=== PATIENT | male | born 1985 | race Caucasian/White ===

== ENCOUNTER 2016-06-04 11:41 | Emergency (ER) | payer OTHER | END 2016-06-04 11:44 | disposition left against medical advice (07) | DX: Z53.21 Procedure and treatment not carried out due to patient leaving prior to being seen by health care provider (principal) ==

== ENCOUNTER 2016-06-08 15:34 | Emergency (ER) | payer OTHER ==
[2016-06-08 16:35] VITALS: RESP 18; TEMP 97.5
[2016-06-08] MEDS ORDERED: NS 1,000 ML IV ONE ×2 (16:38→17:18)
--- NOTE | 2016-06-08 16:59 | DX ---
CHEST, PA and lateral HISTORY: Cough, R05, dyspnea COMPARISON: February 29, 2016 FINDINGS: No infiltrate, atelectasis, mass or adenopathy. No pleural fluid, pneumothorax or pneumomed iastinum. IMPRESSION: Normal
[2016-06-08 17:04] LABS: % IMMATURE GRANULYOCYTES 0.2 % (0.0-1.1); ABSOLUTE IMMATURE GRANULOCYTES 0.02 10^3/uL (0.00-0.10); ADD DIFF? NO; ADD MORPH? NO; ADD SCAN? NO; ATYPICAL LYMPHOCYTE FLAG 0 (0-99); FRAGMENT RBC FLAG 0 (0-99); HEMATOCRIT 53.1 % (40.0-51.0); HEMOGLOBIN 19.6 g/dL (13.7-17.5); LEFT SHIFT FLG 0 (0-99); LIPEMIA HEMOLYSIS FLAG 90 (0-99); MEAN CELL HEMOGLOBIN 31.1 pg (27.9-34.1); MEAN CELL HEMOGLOBIN CONCENTR. 36.9 g/dL (32.4-36.7); MEAN CELL VOLUME 84.3 fL (81.5-99.8); MEAN PLATELET VOLUME 10.8 fL (8.7-11.7); PLATELET CLUMPS FLAG 0 (0-99); PLATELET COUNT 246 10^3/uL (150-400); RED CELL DISTRIBUTION WIDTH 12.5 % (11.5-15.2)
--- NOTE | 2016-06-08 17:18 | EDPHY ---
H & P Time Seen by Provider: 06/08/16 16:37 HPI/ROS: HPI Not feeling well. 31-year-old male by private vehicle with his father. This patient reports that he has had a decreased appetite, felt weak, had nasal congestion and a mild nonproductive cough the last week. Reports that he feels lightheaded when he stands up. He denies fever/chills. This patient has had multiple visits over the last several weeks to the emergency department for various complaints. On review of his vital signs from previous visits he has been tachycardic. ROS: Constitutional: No fever, no chills. As above. Eyes: No discharge. No changes in vision. ENT: No sore throat. As above. Respiratory: As above. No shortness of breath. Cardiac: No chest pain, no palpitations. Gastrointestinal: No abdominal pain, no vomiting, no diarrhea. Genitourinary: No hematuria. No dysuria or increased frequency with urination. Musculoskeletal: No back pain. No neck pain. No myalgias or arthralgias. Skin: No rashes. Neurological: No headache. No focal weakness or altered sensation. Past medical history: Attention deficit hyperactivity disorder, PTSD, anxiety, substance abuse. His medications include clozapine, Lamictal, Antabuse. Social history: He is here with his father. Nonsmoker. Physical Exam: General Appearance: Alert, no distress. This patient is responding to questions appropriately and in full sentences. This patient appears well- hydrated and well-nourished. Eyes: Pupils equal and round no pallor or injection. No lid edema, erythema or injection. ENT, Mouth: Mucous membranes are moist. The pharyngeal tissues are unremarkable. No edema or swelling. No asymmetry suggestive of abscess. No erythema or exudates. Respiratory: There are no retractions, lungs are clear to auscultation with good air movement bilaterally. Cardiovascular: Regular rate and rhythm. No murmur. Gastrointestinal: Abdomen is soft and nontender, no masses, bowel sounds normal. No focal tenderness at McBurney's point. No Garg sign. Neurological: Motor sensory function is grossly intact. Cranial nerves are normal. Gait is normal. Skin: Warm and dry, no rashes. Musculoskeletal: Neck is supple and nontender. Extremities are symmetrical. All joints range without pain or impingement. Psychiatric: No agitation. No depression. Database: EKG: Imaging: Chest x-ray PA and lateral; the cardiac mediastinal silhouette is unremarkable. No evidence of infiltrate or pneumothorax. No acute cardiopulmonary disease process noted. Interpreted by me. Procedures: Emergency department course: IV placed. He was started on IV normal saline with 1 L to be given over the next hour. Vital signs reviewed. He was mildly tachycardic in triage at 1:17 a.m.. Blood pressure normal. Afebrile. Laboratory work indicates dehydration but is otherwise unremarkable. Patient given 2 L of IV normal saline in the emergency department. Influenza is negative. 5:50 p.m., patient re-evaluated. Resting comfortably at this time. Although he meets SIRS criteria based on his initial vital signs, he does not have evidence of serious bacterial infection. He has been afebrile. He has been tachycardic on his previous visits to the emergency department. I do feel he is dehydrated. I do not feel that antibiotics or further workup is required at this time. Results of his diagnostic studies were discussed with him and his father. He states that he is feeling better. He does feel comfortable going home and I feel he is safe for discharge. His presentation is consistent with a viral syndrome. Follow-up and return to emergency department precautions were discussed with the 2 of them. All of their questions were answered. He was discharged in good condition. Differential Diagnosis: The differential diagnosis on this patient includes but is not limited to influenza, pneumonia, viral syndrome, dehydration. Serious bacterial infection unlikely. This represents a partial list of diagnoses considered. These considerations are based on history, physical exam, past history, reassessment and diagnostic testing. Smoking Status: Current some day smoker Constitutional: Initial Vital Signs Temperature (C) 36.3 C 06/08/16 15:44 Heart Rate 117 H 06/08/16 15:44 Respiratory Rate 22 H 06/08/16 15:44 Blood Pressure 102/84 H 06/08/16 15:44 O2 Sat (%) 99 06/08/16 15:44 O2 Delivery Mode Room Air Allergies/Adverse Reactions: Penicillins Allergy (Intermediate, Verified 06/08/16 15:42) Hives Home Medications: Medication Instructions Recorded Adderall 10 MG (*) 03/12/16 Fazaclo 03/12/16 ANTABUSE 06/08/16 Clindamycin 06/08/16 Deplin-Algal Oil 15 mg Capsule 06/08/16 LaMICtal 06/08/16 Medical Decision Making - Data Points Laboratory Results: Laboratory Results 06/08/16 16:50 06/08/16 16:50 Medications Given: Discontinued Medications Sodium Chloride (Ns) 1,000 mls @ 0 mls/hr IV ONCE ONE PRN Reason: Wide Open Stop: 06/08/16 16:39 Last Admin: 06/08/16 16:56 Dose: 1,000 mls Sodium Chloride (Ns) 1,000 mls @ 0 mls/hr IV ONCE ONE PRN Reason: Wide Open Stop: 06/08/16 17:19 Last Admin: 06/08/16 17:34 Dose: 1,000 mls Departure - Departure Disposition: Home, Routine, Self-Care Clinical Impression: Viral syndrome, Dehydration Condition: Good Instructions: Viral Syndrome (ED), Dehydration (ED) Additional Instructions: Read and follow provided instructions. Follow-up with your primary care physician in 1-2 days for re-evaluation. It is very important you drink lots of fluids and keep well hydrated. The best fluid to drink is Gatorade mixed with water in a 1-1 dilution. Return to the emergency department for high fever, vomiting and inability to keep fluids down, worsening cough or other serious concerns. Referrals: Franklyn Neal MD [Primary Care Provider] - As per Instructions
[2016-06-08 17:29] LABS: ANION GAP 19 mEq/L (8-16); CARBON DIOXIDE 22 mEq/l (22-31); CHLORIDE 100 mEq/L (97-110); GLUCOSE 113 mg/dL (70-100); POTASSIUM 3.5 mEq/L (3.5-5.2); SODIUM 141 mEq/L (134-144)
[2016-06-08 17:30] LABS: CALCIUM 10.6 mg/dL (8.5-10.4); GLOMERULAR FILTRATION RATE > 60
[2016-06-08 18:13] VITALS: BP 112/82; PULSE 102; O2SAT 99
== END 2016-06-08 18:13 | disposition home or self-care (01) ==
DX: B34.9 Viral infection, unspecified (principal); E86.0 Dehydration; F17.200 Nicotine dependence, unspecified, uncomplicated

== ENCOUNTER 2016-09-11 12:24 | Emergency (ER) | payer OTHER ==
[2016-09-11] MEDS ORDERED: LORazepam 2 MG/ML INJ IM ONE (12:37)
[2016-09-11] MEDS ORDERED: LORazepam 2 MG/ML INJ IVP ONE ×4 (13:25→19:38)
[2016-09-11 13:30] LABS: % IMMATURE GRANULYOCYTES 0.4 % (0.0-1.1); ABSOLUTE IMMATURE GRANULOCYTES 0.04 10^3/uL (0.00-0.10); ADD DIFF? NO; ADD MORPH? NO; ADD SCAN? NO; ATYPICAL LYMPHOCYTE FLAG 0 (0-99); FRAGMENT RBC FLAG 0 (0-99); HEMOGLOBIN 15.8 g/dL (13.7-17.5); LEFT SHIFT FLG 0 (0-99); LIPEMIA HEMOLYSIS FLAG 80 (0-99); MEAN CELL HEMOGLOBIN 30.2 pg (27.9-34.1); MEAN CELL HEMOGLOBIN CONCENTR. 33.6 g/dL (32.4-36.7); MEAN CELL VOLUME 89.9 fL (81.5-99.8); MEAN PLATELET VOLUME 9.5 fL (8.7-11.7); PLATELET CLUMPS FLAG 10 (0-99); PLATELET COUNT 339 10^3/uL (150-400); RED BLOOD CELL COUNT 5.23 10^6/uL (4.40-6.38)
[2016-09-11 13:41] LABS: ANION GAP 15 mEq/L (8-16); CALCIUM 9.7 mg/dL (8.5-10.4); CARBON DIOXIDE 24 mEq/l (22-31); CHLORIDE 102 mEq/L (97-110); CREATININE 0.8 mg/dL (0.7-1.3); ETHANOL SERUM < 10 mg/dL (0-10); GLOMERULAR FILTRATION RATE > 60; GLUCOSE 135 mg/dL (70-100); POTASSIUM 4.1 mEq/L (3.5-5.2); SODIUM 141 mEq/L (134-144)
--- NOTE | 2016-09-11 14:36 | EDPHY ---
Mental Health General Previous Psychiatric History: previous inpatient psychiatric admission, schizophrenia, bipolar, substance abuse Smoking Status: Current some day smoker Time Patient Placed on M1 Hold: 12:05 Time Medically Cleared for Psychiatric Evaluation: 14:36 Time of Transfer of Care: 18:[address]:: Talisha Narrative: CHIEF COMPLAINT: M1 hold HISTORY OF PRESENT ILLNESS: 31-year-old male with history of schizoaffective disorder and bipolar disorder presents emergency department on an M1 hold. Patient is staying at the [facility] with [facility] and has been there for the past week with increasing agitation and psychosis. Today the patient was acutely psychotic yelling and screaming, speaking nonsensically. Patient is agitated on arrival to the emergency department. Dr. Russo with [facility] is his psychiatrist and called telling us that the patient has extrapyramidal symptoms from most antipsychotics and is recommending benzos for his agitation. REVIEW OF SYSTEMS: Unable to obtain due to mental status Physical Exam Gen: Alert and Oriented, agitated HEENT: PERRL, moist mucous membranes NECK: no meningismus CV: regular rate and regular rhythm PULM: CTAB, no wheezes ABDOMEN: soft, non tender to palpation, BS present BACK: No CVA tenderness NEURO: Follows commands, no facial asymmetry, moves all extremities EXTREMITIES: normal appearing SKIN: no rash or break in skin on exposed skin PSYCH: Yelling, speaking nonsensically, not answering questions appropriate. (Tyesha Alejandra) 1500: The patient is signed out to me at change of shift by Dr. Parrish. I went and personally evaluated the patient. He has no new complaints at this time. He is resting comfortably. Patient was given his evening medications. No new complaints. (Rupali Fong) I assumed care of this patient from Dr. Florence Woodall at 11:00 p.m.. He received 2 mg of Ativan for agitation. He continued with moaning and yelling. The psychiatric team tells us that he can safely take Saphris and he was given 10 mg of this medication. He slept throughout the early hours of the morning. We are awaiting placement. His care is transferred to Dr. Deion Parrish at 7: 00 a.m.. (Sandhya Stephen) Care assumed at 0635 from [facility] with placement pending. 725: Patient still pacing and restless; will continue with Asenaphine 10mg po bid. 1230: The patient will be transferred to [facility] for inpatient psychiatric hospital bed not available at this facility, in stable condition; accepting provider is Kimmy. (Ilan Bates) Medical Decision Making: The patient was evaluated and managed by the Physician Aws Solution Architect/ Nurse Practitioner. I discussed the patient's presentation and course with the midlevel provider with them and agree with the evaluation. My co-signature indicates that I have reviewed this chart and I agree with the findings and plan of care as documented. I am the secondary supervising physician. (Yue Perez) 2300 Care assumed by me from Dr Fong pending placement. [address] Bates pending placement. No issues with this patient overnight. (Gian Palafox) - Objective Vital Signs: Initial Vital Signs Temperature (C) 36.5 C 09/11/16 13:27 Heart Rate 118 H 09/11/16 13:27 Respiratory Rate 18 09/11/16 13:27 Blood Pressure 132/79 H 09/11/16 13:27 O2 Sat (%) 98 09/11/16 13:27 O2 Delivery Mode Room Air Allergies/Adverse Reactions: Penicillins Allergy (Intermediate, Verified 06/08/16 15:42) Hives Home Medications: Medication Instructions Recorded Adderall 10 MG (*) 03/12/16 Fazaclo 03/12/16 ANTABUSE 06/08/16 Clindamycin 06/08/16 Deplin-Algal Oil 15 mg Capsule 06/08/16 LaMICtal 06/08/16 Medications Given: Discontinued Medications Acetaminophen (Tylenol) 500 mg PO EDNOW ONE Stop: 09/11/16 15:03 Last Admin: 09/11/16 15:02 Dose: 500 mg Asenapine (Saphris) 10 mg SL EDNOW ONE Stop: 09/12/16 02:22 Last Admin: 09/12/16 02:42 Dose: 10 mg Asenapine (Saphris) 10 mg SL EDNOW ONE Stop: 09/12/16 14:33 Last Admin: 09/12/16 14:51 Dose: 10 mg Asenapine (Saphris) 10 mg SL EDNOW ONE Stop: 09/12/16 21:06 Last Admin: 09/12/16 21:26 Dose: 10 mg Asenapine (Saphris) 10 mg SL EDNOW ONE Stop: 09/13/16 07:25 Last Admin: 09/13/16 08:00 Dose: 10 mg Lorazepam (Ativan Injection) 2 mg IM EDNOW ONE Stop: 09/11/16 12:38 Last Admin: 09/11/16 13:25 Dose: Not Given Lorazepam (Ativan Injection) 1 mg IVP EDNOW ONE Stop: 09/11/16 13:26 Last Admin: 09/11/16 13:29 Dose: 1 mg Lorazepam (Ativan Injection) 1 mg IVP EDNOW ONE Stop: 09/11/16 13:40 Last Admin: 09/11/16 13:43 Dose: 1 mg Lorazepam (Ativan Injection) 1 mg IVP EDNOW ONE Stop: 09/11/16 15:48 Last Admin: 09/11/16 16:21 Dose: 1 mg Lorazepam (Ativan Injection) 1 mg IVP EDNOW ONE Stop: 09/11/16 19:39 Last Admin: 09/11/16 19:51 Dose: 1 mg Lorazepam (Ativan) 2 mg PO EDNOW ONE Stop: 09/12/16 00:46 Last Admin: 09/12/16 01:04 Dose: 2 mg Lorazepam (Ativan) 1 mg PO EDNOW ONE Stop: 09/12/16 14:34 Last Admin: 09/12/16 14:52 Dose: 1 mg Lorazepam (Ativan) 1 mg PO EDNOW ONE Stop: 09/12/16 21:06 Last Admin: 09/12/16 21:26 Dose: 1 mg Lorazepam (Ativan) 2 mg PO EDNOW ONE Stop: 09/12/16 23:56 Last Admin: 09/13/16 00:05 Dose: 2 mg Lorazepam (Ativan) 2 mg PO EDNOW ONE Stop: 09/13/16 03:51 Last Admin: 09/13/16 03:50 Dose: 2 mg Throat Lozenges (Cepacol Lozenge) 1 ea PO EDNOW ONE Stop: 09/12/16 14:31 Last Admin: 09/12/16 14:52 Dose: 1 ea Throat Lozenges (Cepacol Lozenge) 1 ea PO EDNOW ONE Stop: 09/12/16 18:43 Last Admin: 09/12/16 21:26 Dose: 1 ea Throat Lozenges (Cepacol Lozenge) 1 ea PO EDNOW ONE Stop: 09/13/16 08:21 Last Admin: 09/13/16 08:20 Dose: 1 ea Laboratory Results: Laboratory Results 09/11/16 13:20 09/11/16 13:20 Departure - Departure Disposition: Other Psych, Not Robert Clinical Impression: Acute psychosis Condition: Good Referrals: [facility] [Other] - As per Instructions
[2016-09-11 14:42] LABS: LITHIUM 0.3 mEq/L (0.6-1.2)
[2016-09-11] MEDS ORDERED: ACETAMINOPHEN 500 MG TAB ONE (14:58)
[2016-09-11] MEDS ORDERED: ACETAMINOPHEN 500 MG TAB PO ONE (15:02)
[2016-09-11] MEDS ORDERED: IBUPROFEN 200 MG TAB PO ONE (15:55)
[2016-09-11] MEDS: NICOTINE 7 MG/24 HR PATCH TD SCH (22:35)
[2016-09-12] MEDS ORDERED: LORazepam 1 MG TAB ONE (00:40)
[2016-09-12] MEDS ORDERED: LORazepam 1 MG TAB PO ONE ×4 (00:45→23:55)
[2016-09-12] MEDS ORDERED: ASENAPINE MALEATE 10 MG SUBLINGUAL TAB SL ONE ×3 (02:21→21:05)
[2016-09-12] MEDS ORDERED: CEPACOL LOZENGE PO ONE ×2 (14:30→18:42)
[2016-09-12] MEDS: NICOTINE 7 MG/24 HR PATCH TD SCH (17:31)
[2016-09-13] MEDS ORDERED: NICOTINE POLACRILEX 2 MG GUM B ONE (00:01)
[2016-09-13] MEDS ORDERED: LORazepam 1 MG TAB ONE (03:49)
[2016-09-13] MEDS ORDERED: LORazepam 1 MG TAB PO ONE (03:50)
[2016-09-13] MEDS ORDERED: ASENAPINE MALEATE 10 MG SUBLINGUAL TAB SL ONE (07:24)
[2016-09-13] MEDS ORDERED: CEPACOL LOZENGE PO ONE (08:20)
[2016-09-13] MEDS: NICOTINE 7 MG/24 HR PATCH TD SCH ×2 (09:31→14:21)
[2016-09-13] MEDS ORDERED: LORazepam 0.5 MG TAB PO ONE (15:16)
[2016-09-13 15:19] VITALS: BP 101/76; PULSE 75; RESP 18; TEMP 98.6; O2SAT 99
== END 2016-09-13 17:35 ==
LOC: EDUNIT#
DX: F23 Brief psychotic disorder (principal); F17.200 Nicotine dependence, unspecified, uncomplicated
CPT/HCPCS: 80305; 96374; G0480; J2060

== ENCOUNTER 2016-10-25 05:59 | Inpatient (IN) | payer OTHER ==
[2016-10-25] MEDS ORDERED: LORazepam 1 MG TAB ONE ×2 (07:29)
[2016-10-25] MEDS ORDERED: OMEGA-3 FATTY ACIDS 1,000 MG CAP PO ONE (10:45)
[2016-10-25] MEDS ORDERED: MULTIVITAMINS 1 EACH TAB PO ONE (10:45)
[2016-10-25] MEDS ORDERED: clonazePAM 1 MG TAB PO ONE (10:45)
[2016-10-25] MEDS ORDERED: PSEUDOEPHEDRINE HCL 120 MG EXT REL TAB PO ONE (10:45)
[2016-10-25] MEDS ORDERED: CHOLECALCIFEROL VIT D3 1,000 UNITS TAB PO ONE (10:45)
[2016-10-25] MEDS ORDERED: OXcarbazepine 300 MG TAB PO ONE (10:45)
[2016-10-25] MEDS ORDERED: CETIRIZINE 10 MG TAB PO ONE (10:45)
[2016-10-25 11:39] LABS: PHENCYCLIDINE URINE BCH < 6 ng/ml (NEGATIVE); PHENCYCLIDINE URINE BCH NEGATIVE (NEGATIVE); TETRAHYDROCANNABINOL URINE < 5 ng/mL (NEGATIVE); TETRAHYDROCANNABINOL URINE NEGATIVE (NEGATIVE)
[2016-10-25 12:14] LABS: ALANINE AMINOTRANSFERASE 31 IU/L (21-72); ALBUMIN 4.7 g/dL (3.5-5.0); ALKALINE PHOSPHATASE 67 IU/L (38-126); ANION GAP 11 mEq/L (8-16); ASPARTATE AMINOTRANSFERASE 21 IU/L (17-59); BILIRUBIN,TOTAL 1.1 mg/dL (0.1-1.4); CALCIUM 9.2 mg/dL (8.5-10.4); CARBON DIOXIDE 24 mEq/l (22-31); CHLORIDE 104 mEq/L (97-110); CREATININE 0.8 mg/dL (0.7-1.3); ETHANOL SERUM < 10 mg/dL (0-10); GLOMERULAR FILTRATION RATE > 60; GLUCOSE 83 mg/dL (70-100); POTASSIUM 4.4 mEq/L (3.5-5.2); SODIUM 139 mEq/L (134-144); TOTAL PROTEIN 7.4 g/dL (6.3-8.2)
[2016-10-25 12:53] LABS: % IMMATURE GRANULYOCYTES 0.3 % (0.0-1.1); ABSOLUTE IMMATURE GRANULOCYTES 0.02 10^3/uL (0.00-0.10); ADD DIFF? NO; ADD MORPH? NO; ADD SCAN? NO; ATYPICAL LYMPHOCYTE FLAG 20 (0-99); FRAGMENT RBC FLAG 20 (0-99); HEMATOCRIT 43.6 % (40.0-51.0); HEMOGLOBIN 14.5 g/dL (13.7-17.5); LEFT SHIFT FLG 0 (0-99); LIPEMIA HEMOLYSIS FLAG 80 (0-99); MEAN CELL HEMOGLOBIN 29.7 pg (27.9-34.1); MEAN CELL HEMOGLOBIN CONCENTR. 33.3 g/dL (32.4-36.7); MEAN CELL VOLUME 89.3 fL (81.5-99.8); PLATELET CLUMPS FLAG 10 (0-99); PLATELET COUNT 288 10^3/uL (150-400); RED BLOOD CELL COUNT 4.88 10^6/uL (4.40-6.38); RED CELL DISTRIBUTION WIDTH 12.4 % (11.5-15.2)
--- NOTE | 2016-10-25 15:13 | EDPHY ---
ED Progress Note Narrative: Patient has been evaluated by mental health and they would like to admit him to [address] [place] [address]. Appropriate paperwork is filled out. Accepting physician is Dr. rPyor. Patient remains stable (Jaiden Romeo) Care the patient was assumed from Dr. Baird at 7:00 a.m. history of schizoaffective disorder on a mental health hold. Please see his primary H &P, and emergency department note for history and physical and initial assessment. 129/83, heart rate 69, respiratory rate 22, temp 36.7degrees, pulse oximetry 98% . CBC and chemistry normal, liver function normal, toxicology screen negative, ethanol less than 10. Signed out to Dr. Romeo at 1500 with psychiatric evaluation pending. Clinical impression: Schizoaffective disorder Disposition: inpatient [address] [place] [address] behavioral health Condition: fair, stable. (Ilan Bates)
[2016-10-25] MEDS ORDERED: MAGNESIUM HYDROXIDE 30 ML UDCUP PO PRN (18:51)
[2016-10-25] MEDS ORDERED: OLANZapine DISINTEGR 10 MG TAB PO PRN (18:51)
[2016-10-25] MEDS: clonazePAM 1 MG TAB PO SCH (20:46)
[2016-10-25] MEDS: OXcarbazepine 300 MG TAB PO SCH (20:46)
--- NOTE | 2016-10-25 23:33 | EDPHY ---
H & P Stated Complaint: M1 Time Seen by Provider: 10/25/16 10:29 HPI/ROS: CHIEF COMPLAINT: Self-harm gestures HISTORY OF PRESENT ILLNESS: The patient is a 31-year-old man sent from [facility] for making threatening gestures with a knife to himself and others. He is on a court-ordered mental health hold to take his medications but has been refusing. He denies all of this to me and states that some fucking bitch over reacted. He also states that they tried to give him Klonopin but the pharmacy fucked it up because it did not feel like Klonopin. He is very angry and somewhat confrontational. He denies suicidal homicidal ideations. He denies recent drug or alcohol use. According to the medical record he has a history of schizoaffective bipolar type. REVIEW OF SYSTEMS: Constitutional: denies: chills, fever, recent illness, recent injury EENTM: denies: blurred vision, double vision, nose congestion Respiratory: denies: cough, shortness of breath Cardiac: denies: chest pain, irregular heart rate, lightheadedness, palpitations Gastrointestinal/Abdominal: denies: abdominal pain, diarrhea, nausea, vomiting, blood streaked stools Genitourinary: denies: dysuria, frequency, hematuria, pain Musculoskeletal: denies: joint pain, muscle pain Skin: denies: lesions, rash, jaundice, bruising Neurological: denies: headache, numbness, paresthesia, tingling, dizziness, weakness Hematologic/Lymphatic: denies: blood clots, easy bleeding, easy bruising Immunologic/allergic: denies: HIV/AIDS, transplant EXAM: GENERAL: Well-appearing, well-nourished and in no acute distress. HEAD: Atraumatic, normocephalic. EYES: Pupils equal round and reactive to light, extraocular movements intact, sclera anicteric, conjunctiva are normal. ENT: TMs normal, nares patent, oropharynx clear without exudates. Moist mucous membranes. NECK: Normal range of motion, supple without lymphadenopathy or JVD. LUNGS: Breath sounds clear to auscultation bilaterally and equal. No wheezes rales or rhonchi. HEART: Regular rate and rhythm without murmurs, rubs or gallops. ABDOMEN: Soft, nontender, normoactive bowel sounds. No guarding, no rebound. No masses appreciated. BACK: No CVA tenderness, no spinal tenderness, step-offs or deformities EXTREMITIES: Normal range of motion, no pitting or edema. No clubbing or cyanosis. NEUROLOGICAL: Cranial nerves II through XII grossly intact. Normal speech, normal gait. 5/5 strength, normal movement in all extremities, normal sensation PSYCH: Angry, confrontational. SKIN: Warm, dry, normal turgor, no visible rashes or lesions. Source: Patient Exam Limitations: No limitations - Personal History Current Tetanus/Diphtheria Vaccine: Unsure Current Tetanus Diphtheria and Acellular Pertussis (TDAP): Unsure - Medical/Surgical History Hx Asthma: No Hx Chronic Respiratory Disease: No Hx Diabetes: No Hx Cardiac Disease: No Hx Renal Disease: No Hx Cirrhosis: No Hx Alcoholism: No Hx HIV/AIDS: No Hx Splenectomy or Spleen Trauma: No Other PMH: schizo affective. ADD. ADHD. anxiety. PTSD - Family History Significant Family History: No pertinent family hx - Social History Smoking Status: Heavy smoker Alcohol Use: Sober Drug Use: None Constitutional: Initial Vital Signs Temperature (C) 36.7 C 10/25/16 10:12 Heart Rate 69 10/25/16 10:12 Respiratory Rate 22 H 10/25/16 10:12 Blood Pressure 129/83 H 10/25/16 10:12 O2 Sat (%) 98 10/25/16 10:12 O2 Delivery Mode Room Air O2 (L/minute) 96 Allergies/Adverse Reactions: Penicillins Allergy (Intermediate, Verified 06/08/16 15:42) Hives Home Medications: Medication Instructions Recorded Fexofenadine/Pseudoephedrine 1 each PO DAILY 10/25/16 [Lin-D 12 Hour Tablet] Multivitamins [Multivitamin (*)] 1 each PO DAILY 10/25/16 OXcarbazepine [Trileptal 300mg (*)] 300 mg PO BID 10/25/16 [place]-3 Fatty Acids [Fish Oil 1000 1,000 mg PO DAILY 10/25/16 mg (*)] Paliperidone Palmitate [Invega 156 mg IM Q28D 10/25/16 Sustenna (*)] clonazePAM [klonoPIN (*)] 1 mg PO DAILY 10/25/16 clonazePAM [klonoPIN (*)] 2 mg PO HS 10/25/16 Medical Decision Making ED Course/Re-evaluation: MDM: Patient is here on an M1 hold signed by a physician at their facility. He is not following his court-ordered treatment program. We will clear him medically and have him evaluated by Mental Health. 7:00 a.m. care transferred to Dr. Ilan Bates. Differential Diagnosis: Partial list of the Differential diagnosis considered include but were not limited to; depression, bipolar, schizoaffective, suicidality, substance abuse and although unlikely based on the history and physical exam, I also considered head injury, infection. - Data Points Laboratory Results: Laboratory Results 10/25/16 10:57 10/25/16 10:57 10/25/16 10/25/16 10/25/16 10:57 10:57 10:57 WBC 6.91 10^3/uL 10^3/uL (3.80-9.50) RBC 4.88 10^6/uL 10^6/uL (4.40-6.38) Hgb 14.5 g/dL g/dL (13.7-17.5) Hct 43.6 % % (40.0-51.0) MCV 89.3 fL fL (81.5-99.8) MCH 29.7 pg pg (27.9-34.1) MCHC 33.3 g/dL g/dL (32.4-36.7) RDW 12.4 % % (11.5-15.2) Plt Count 288 10^3/uL 10^3/uL (150-400) MPV 10.0 fL fL (8.7-11.7) Neut % (Auto) 59.9 % % (39.3-74.2) Lymph % (Auto) 28.1 % % (15.0-45.0) [place] % (Auto) 9.8 % % (4.5-13.0) Eos % (Auto) 1.6 % % (0.6-7.6) Baso % (Auto) 0.3 % % (0.3-1.7) Nucleat RBC Rel Count 0.0 % % (0.0-0.2) Absolute Neuts (auto) 4.14 10^3/uL 10^3/uL (1.70-6.50) Absolute Lymphs (auto) 1.94 10^3/uL 10^3/uL (1.00-3.00) Absolute Monos (auto) 0.68 10^3/uL 10^3/uL (0.30-0.80) Absolute Eos (auto) 0.11 10^3/uL 10^3/uL (0.03-0.40) Absolute Basos (auto) 0.02 10^3/uL 10^3/uL (0.02-0.10) Absolute Nucleated RBC 0.00 10^3/uL 10^3/uL (0-0.01) Immature Gran % 0.3 % % (0.0-1.1) Immature Gran # 0.02 10^3/uL 10^3/uL (0.00-0.10) Sodium 139 mEq/L mEq/L (134-144) Potassium 4.4 mEq/L mEq/L (3.5-5.2) Chloride 104 mEq/L mEq/L (97-110) Carbon Dioxide 24 mEq/l mEq/l (22-31) Anion Gap 11 mEq/L mEq/L (8-16) BUN 5 mg/dL L mg/dL (7-23) Creatinine 0.8 mg/dL mg/dL (0.7-1.3) Estimated GFR > 60 Glucose 83 mg/dL mg/dL (70-100) Calcium 9.2 mg/dL mg/dL (8.5-10.4) Total Bilirubin 1.1 mg/dL mg/dL (0.1-1.4) AST 21 IU/L IU/L (17-59) ALT 31 IU/L IU/L (21-72) Alkaline Phosphatase 67 IU/L IU/L (38-126) Total Protein 7.4 g/dL g/dL (6.3-8.2) Albumin 4.7 g/dL g/dL (3.5-5.0) Urine Opiates Screen NEGATIVE ng/mL ng/mL (NEGATIVE) Urine Barbiturates NEGATIVE ng/mL ng/mL (NEGATIVE) Ur Phencyclidine Scrn NEGATIVE ng/mL ng/mL (NEGATIVE) Ur Amphetamines Screen NEGATIVE ng/mL ng/mL (NEGATIVE) U Benzodiazepines Scrn NEGATIVE ng/mL ng/mL (NEGATIVE) Urine Cocaine Screen NEGATIVE ng/mL ng/mL (NEGATIVE) U Marijuana (THC) Screen NEGATIVE ng/mL ng/mL (NEGATIVE) Ethyl Alcohol < 10 mg/dL mg/dL (0-10) Medications Given: Discontinued Medications Cetirizine HCl (Zyrtec) 10 mg PO EDNOW ONE Stop: 10/25/16 10:46 Last Admin: 10/25/16 09:00 Dose: 10 mg Cholecalciferol (Vitamin D) 1,000 units PO EDNOW ONE Stop: 10/25/16 10:46 Last Admin: 10/25/16 09:00 Dose: 1,000 units Clonazepam (Klonopin) 1 mg PO EDNOW ONE Stop: 10/25/16 10:46 Last Admin: 10/25/16 11:01 Dose: 1 mg Multivitamins (Tab-A-William) 1 each PO EDNOW ONE Stop: 10/25/16 10:46 Last Admin: 10/25/16 09:00 Dose: 1 each Swouv-2-Wzyo Ethyl Esters (Fish Oil) 2,000 mg PO EDNOW ONE Stop: 10/25/16 10:46 Last Admin: 10/25/16 09:00 Dose: 2,000 mg Oxcarbazepine (Trileptal) 300 mg PO EDNOW ONE Stop: 10/25/16 10:46 Last Admin: 10/25/16 11:01 Dose: Not Given Pseudoephedrine HCl (Sudafed 12 Hour) 120 mg PO EDNOW ONE Stop: 10/25/16 10:46 Last Admin: 10/25/16 09:00 Dose: 120 mg Departure - Departure Disposition: [facility] IP Clinical Impression: Bipolar affective disorder, current episode manic Qualifiers: Current episode severity: severe Psychotic features: with psychotic features Qualified Code(s): F31.2 - Bipolar disorder, current episode manic severe with psychotic features Condition: Fair
[2016-10-26] MEDS: OMEGA-3 FATTY ACIDS 1,000 MG CAP PO SCH (08:54)
[2016-10-26] MEDS: OXcarbazepine 300 MG TAB PO SCH ×3 (08:54→21:03)
[2016-10-26] MEDS ORDERED: PALIPERIDONE PALMITATE 156 MG/ML SYR IM SCH (09:00)
[2016-10-26] MEDS: PSEUDOEPHEDRINE HCL 30 MG TAB PO SCH (10:48)
[2016-10-26] MEDS: CETIRIZINE 10 MG TAB PO SCH ×2 (11:11→11:40)
[2016-10-26] MEDS: NICOTINE POLACRILEX 2 MG GUM B PRN ×3 (11:11→15:00)
[2016-10-26] MEDS: SIMETHICONE 80 MG TAB CHEW PO SCH ×3 (12:24→21:04)
--- NOTE | 2016-10-26 13:18 | BCON ---
[f rep st] BEHAVIORAL HEALTH CONSULTATION INTERNAL MEDICINE CONSULTATION DATE OF CONSULTATION: 10/26/2016 REFERRING PHYSICIAN: Td Calabrese MD REASON FOR REFERRAL: Medical clearance for inpatient behavioral health stay. HISTORY OF PRESENT ILLNESS: The patient came to the [facility] emergency department. He had court-ordered medications and was living at [facility]. He was refusing his medications and also was making threatening gestures with a knife toward himself and others, and so he was sent for inpatient psychiatric care. He complains of foot pain and requests Percocet. He reports allergic sinusitis and requests Lin-D. He complains that he has been prescribed Sudafed, but only 1 pill of 30 mg, and he would like to have more Sudafed. Otherwise, he is without acute complaints. PAST MEDICAL HISTORY: 1. Mental health issues with diagnosis of schizoaffective disorder, bipolar type. 2. Carpal tunnel syndrome of the left wrist. 3. Allergic sinusitis. 4. Attention deficit disorder. 5. Hyponatremia due to psychogenic polydipsia. MEDICATIONS: Prior to admission: 1. Paliperidone 156 mg IM q.28 days. 2. Clonazepam 1 mg q. day and 2 mg q.h.s. 3. Fish oil 1000 mg q. day. 4. Multivitamin 1 p.o. q. day. 5. Oxcarbazepine 300 mg p.o. b.i.d. 6. Fexofenadine/pseudoephedrine 1 each p.o. q. day. SOCIAL HISTORY: He is a smoker. He uses occasional alcohol. He has been living at [facility]. FAMILY HISTORY: Noncontributory. REVIEW OF SYSTEMS: Limited due to lack of cooperation. He says he has an occasional cough. He denies dyspnea. He says he has sinus pressure. He says he has foot pain since last May, but denies any history of foot trauma. Otherwise, to the extent that it was possible to obtain it, a 10-point review of systems was negative. PHYSICAL EXAMINATION: VITALS: Yesterday at 1600 hours blood pressure was 129/ 83, heart rate was 102, respiratory rate was 16, oxygen saturation was 96% on room air, temperature was 36.9 degrees centigrade. His weight was measured at 50 kg for a body mass index of 16.3; however, I suspect the weight is inaccurate as he does not appear to be underweight. GENERAL: This is a well- nourished, well-developed man, appears his chronologic age, moderately cooperative, and in no acute distress, with an angry affect. HEENT: Extraocular movements are intact. Pupils are dilated, equal, round and reactive. Mucous membranes are moist. Dentition is in good condition. There is no posterior oropharyngeal mucus. NECK: Supple. HEART: There is a regular rate and rhythm with no murmurs, rubs, or gallops. LUNGS: Clear to auscultation bilaterally. ABDOMEN: Exam was not conducted. EXTREMITIES: There is no cyanosis, clubbing, or edema. Radial and dorsalis pedis pulses are 2+ bilaterally. SKIN: He has some peeling calluses on his right foot. He was not willing to show me his left foot. NEUROLOGIC: He is alert and oriented x3. He is mildly agitated and angry. There is no focal weakness. Sensation is intact to light touch and gait is within normal limits and not antalgic. LABORATORY STUDIES: Drawn in the emergency department. CBC was entirely within normal limits. Serum chemistry revealed normal renal function and electrolytes, but for a slightly low BUN of 5 of no clinical significance. Liver function tests were within normal limits. Toxicology screen in the serum was negative for ethyl alcohol, and the urine was negative for any substances of abuse. ASSESSMENT/RECOMMENDATIONS: 1. Mental health issues. Pending further evaluation and management per Psychiatry and the mental health team. 2. Allergic sinusitis. I informed him that he could have Lin-D if it can be brought in and verified by the Pharmacy, and I have put in an order for a non -formulary medication. Otherwise, would continue cetirizine and pseudoephedrine. He is requesting 2 tablets of pseudoephedrine instead of 1. Since he has a history of stimulant use and is requesting stimulants, I will leave it to the discretion of Psychiatry whether or not to supply more pseudoephedrine. If he can bring in his Lin-D, he will have a 60 mg dose of pseudoephedrine. 3. Foot pain, unclear etiology. Likely drug seeking with request for Percocet. Gait does not appear to be painful. I have prescribed p.r.n. ibuprofen. He already has acetaminophen ordered. 4. Calluses on feet. There is no specific treatment. Expect these to resolve over time. They likely are a result of his footwear. 5. Tobacco dependence syndrome. Reviewing notes from previous hospitalizations , he has refused nicotine replacement; however, he has already taken nicotine replacement. During this hospitalization advise encouraging tobacco cessation. I see no medical contraindications to the patient's continued stay on the inpatient behavioral health unit or to any psychiatric medications or procedures. Thank you very much for including me in the care of the patient and please do not hesitate to contact me or the hospitalist service should there be need for further medical evaluation. /[id number]/MODL MTDD
[2016-10-26] MEDS: clonazePAM 1 MG TAB PO SCH (17:16)
[2016-10-27] MEDS ORDERED: CITRIC ACID/SODIUM CITRATE 30 ML UDCUP PO ONE (06:35)
[2016-10-27] MEDS ORDERED: NS 1,000 ML IV ONE (06:35)
[2016-10-27] MEDS ORDERED: ONDANSETRON DISINTEGRATING 4 MG TAB PO ONE (06:35)
[2016-10-27] MEDS ORDERED: LIDOCAINE 2% 5 ML SDV ID ONE (06:35)
[2016-10-27] MEDS ORDERED: ONDANSETRON DISINTEGRATING 4 MG TAB ONE (07:54)
[2016-10-27] MEDS ORDERED: CITRIC ACID/SODIUM CITRATE 30 ML UDCUP ONE (07:54)
[2016-10-27] MEDS ORDERED: IBUPROFEN 200 MG TAB PO ONE ×2 (08:46→08:48)
[2016-10-27] MEDS: OMEGA-3 FATTY ACIDS 1,000 MG CAP PO SCH (09:59)
[2016-10-27] MEDS: SIMETHICONE 80 MG TAB CHEW PO SCH ×4 (09:59→20:44)
[2016-10-27] MEDS: CETIRIZINE 10 MG TAB PO SCH (10:09)
[2016-10-27] MEDS: PSEUDOEPHEDRINE HCL 30 MG TAB PO SCH (10:09)
[2016-10-27] MEDS: OXcarbazepine 300 MG TAB PO SCH ×2 (10:09→20:44)
[2016-10-27] MEDS: CLARITIN-D PO SCH ×2 (10:09→19:54)
[2016-10-27] MEDS: MAG HYDROX/AL HYDROX/SIMETH 30 ML UDCUP PO PRN (11:10)
[2016-10-27] MEDS: CALCIUM CARBONATE 500 MG CHEWABLE TAB PO PRN (11:36)
[2016-10-27] MEDS ORDERED: PALIPERIDONE PALMITATE 156 MG/ML SYR IM SCH (13:00)
[2016-10-27] MEDS: LORazepam 0.5 MG TAB PO PRN (13:02)
[2016-10-27] MEDS: NICOTINE POLACRILEX 2 MG GUM B PRN (14:03)
--- NOTE | 2016-10-27 15:38 | SOAPPROG ---
SOAP Progress Note Assessment/Plan: Assessment: Plan: 10/27/16 15:39 Received Invega Sustenna today. Will [facility], monitor. Subjective: Pt seen, discussed with staff. Remains hostile though more conversant. Has numerous demands for amphetamines, marijuana, and opioids. Also demands to be d /c'd back to today. Angry and profane when talking about outpatient treatment team. This seems mainly centered on his desire for amphetamines to treat his ADHD. No aggression noted. Underwent ECT without complication. Objective: Vital Signs Temp Pulse Resp BP Pulse Ox 38.7 C H 96 13 120/68 97 10/27/16 09:10 10/27/16 10:10 10/27/16 10:10 10/27/16 10:10 10/27/16 10:10 MSE: Agitated, intrusive, hostile. Affect is angry, stable. Mood is "bad." TP linear at times with some derailment. Denies SI/HI/. - Time Spent With Patient Time Spent With Patient: 35" - Pending Discharge Pending Discharge Within 24 Hours: No Pending Discharge Within 48 Hours: No ICD10 Worksheet Patient Problems: Problems Problem Status Onset Bipolar affective disorder, current episode manic Acute
--- NOTE | 2016-10-27 16:52 | BAPA ---
[f rep st] ADMISSION PSYCHIATRIC ASSESSMENT DATE OF SERVICE: Evaluation 10/26/2016 and 10/27/2016. Note the patient was interviewed on 2 consecutive days to complete initial history as he was uncommunicative in hospital the first day. CHIEF COMPLAINT: "I don't need to be in this place. They lied about me." HISTORY OF PRESENT ILLNESS: The patient is a 31-year-old male with a history of schizoaffective disorder. He is a patient at [facility] and had recently been at [facility] for a month. He had been at [facility] prior to that and had become acutely psychotic and aggressive. He was then transferred to the emergency department ultimately at [facility]. He was treated there with a combination of medications and ECT. He had a full acute course of ECT and was released back to [facility] under the care of Dr. Vangie Daniel at [facility]. There, he was compliance initially but later became again agitated and fixated on watching extremely violent movies on the Internet. He then brandished a butter knife and was making threats toward other patients and staff and stated he wanted to leave. He was then sent to the emergency room again and readmitted to this facility. Between the 2 hospitalizations, he did receive 1 outpatient continuation ECT treatment with me and was compliant with this. He stated at that time that he believed ECT was helpful, but he did not want to take medications as they essentially did not agree with him and he thought they were bad for him. Today , the patient reiterates this, stating that he does not want to take any medications and will not voluntarily take any medications. I remind him that he has a court order for medications and insist that he receive his Invega Sustenna shot. Ultimately, he acquiesced to this in the context of wanting to leave the hospital. So far at this facility, he has been persistently verbally agitated and aggressive, arguing with and threatening other patients, and engaging negatively with staff. He is reluctantly compliant with medications today after our discussion. PAST PSYCHIATRIC HISTORY: Patient has a history of ADHD and then a recent diagnosis of schizoaffective disorder. He is currently under the care of Dr. Daniel at [facility]. He has a history of previous suicidal ideation, though there is no documented history of previous suicide attempts. Last hospitalization prior to this was at [facility] for approximately a month , discharging less than a week. He has a history of numerous hospitalizations prior to that to that hospitalization since 2008. He may have a history of an eating disorder with purging, including abuse of laxatives. ALLERGIES: Penicillin. CURRENT MEDICATIONS: Clonazepam 1 mg daily, Lin-D 12-hour 1 tab daily, Avinger-3 fatty acids 1000 mg daily, oxcarbazepine 300 mg b.i.d., and Invega Sustenna 156 mg IM due on 10/25/2016. PAST MEDICAL HISTORY: Non-contributory. SOCIAL HISTORY: The patient is currently residing at [facility]. He has been there previously over a number of years. He identifies rock climbing as his preferred hobby. He has a bachelor's degree in [place] from the [employer], though it is unclear whether he actually completed this. The patient denies any recent substance abuse. Exact nature of the patient's current support is unclear. ADMISSION LABORATORY: CBC is normal. Serum chemistries are normal. Liver function is normal. Urine drug screen is negative for all substances. MENTAL STATUS EXAM: Reveals an unkempt, small, thin male. His hair is disheveled and he appears poorly groomed. His affect is intense and he stares with prolonged eye contact in a hostile and seemingly threatening way. He describes his mood as "pissed off." His thought process is linear, though perseverative on themes of not wanting to take medications and being persecuted. His thought content reveals paranoid ideations and some internal preoccupation, though he denies auditory hallucinations. He is alert and oriented to person, place, time, situation, and his sensorium is clear. He repeatedly denies any intention to harm himself or anyone else, though demonstrates very poor reality testing into the nature and frequency of his interpersonal conflicts with others here in the unit. His intellect appears to be at least average, as evidenced by his educational history, fund of knowledge , and vocabulary. His insight and judgment appear to be poor. IMPRESSION: 1. Schizoaffective disorder, bipolar type, chronic, with acute exacerbation. 2. Attention deficit hyperactivity disorder, by history. 3. Chronic allergic sinusitis. 4. Recent hyponatremia due to psychogenic polydipsia. 5. History of bulimia. The patient is a 31-year-old male with a history of schizoaffective disorder. He has been paranoid and threatening for some time now. He had a 1- month hospitalization during which he received court-ordered medications and court-ordered ECT. He states the ECT was helpful and desires to continue that but refuses medications. He did acquiesce to his Invega shot today, however, and we will provide intramuscular backup for the Trileptal with Zyprexa if needed. We will work with the patient on discharge planning as he desires to return to [facility] in an attempt to establish a therapeutic alliance. He is currently demanding amphetamines for his ADHD, medical marijuana and opioids for foot pain, which I have indicated I will not provide. We will continue acute course ECT here to see if that is calming for him and then transition back to continuation of discharge. ESTIMATED LENGTH OF STAY: 7-10 days. /[id number]/MODL MTDD
[2016-10-27] MEDS: clonazePAM 1 MG TAB PO SCH (19:03)
[2016-10-27] MEDS: IBUPROFEN 600 MG TAB PO PRN (19:31)
[2016-10-28] MEDS: IBUPROFEN 600 MG TAB PO PRN (08:50)
[2016-10-28] MEDS: PSEUDOEPHEDRINE HCL 30 MG TAB PO SCH (08:51)
[2016-10-28] MEDS: SIMETHICONE 80 MG TAB CHEW PO SCH ×4 (08:51→19:44)
[2016-10-28] MEDS: CETIRIZINE 10 MG TAB PO SCH (08:51)
[2016-10-28] MEDS: OMEGA-3 FATTY ACIDS 1,000 MG CAP PO SCH (08:51)
[2016-10-28] MEDS: LORazepam 0.5 MG TAB PO PRN ×2 (09:32→16:43)
[2016-10-28] MEDS: ALLEGRA-D PO SCH ×2 (11:10→19:44)
[2016-10-28] MEDS: CLARITIN-D PO SCH (11:27)
[2016-10-28] MEDS ORDERED: OLANZapine 10 MG/2 ML VIAL IM PRN (12:54)
[2016-10-28] MEDS: OXcarbazepine 300 MG TAB PO SCH ×2 (14:06→19:43)
--- NOTE | 2016-10-28 15:23 | SOAPPROG ---
SOAP Progress Note Assessment/Plan: Assessment: Plan: 10/27/16 15:39 Received Invega Sustenna today. Will [facility], monitor. 10/28/16 15:23 Remains hostile, agitated. Will [facility]: ECT. Subjective: Pt seen, discussed with staff. Remains intermittently agitated, irritable. Continues to insist on d/c and being treated with amphetamines and opioids. No aggression. Continues to refuse PO meds. I discussed this with him again emphasizing the benefits of Trileptal for his mood, impulse control and irritability. Objective: Vital Signs Temp Pulse Resp BP Pulse Ox 36.7 C 61 14 88/61 L 96 10/28/16 06:15 10/28/16 06:15 10/28/16 06:15 10/28/16 06:15 10/28/16 06:15 MSE: Agitated, pressured. Interrupts my sessions with other patients repeatedly. Affect is irritable. Mood is "shitty." TP is generally disorganized. TC reveals paranoia, poor reality testing. - Time Spent With Patient Time Spent With Patient: 15" - Pending Discharge Pending Discharge Within 24 Hours: No Pending Discharge Within 48 Hours: No ICD10 Worksheet Patient Problems: Problems Problem Status Onset Bipolar affective disorder, current episode manic Acute
[2016-10-28] MEDS: NICOTINE POLACRILEX 2 MG GUM B PRN (15:30)
[2016-10-28] MEDS: clonazePAM 1 MG TAB PO SCH (19:44)
[2016-10-29] MEDS ORDERED: ONDANSETRON DISINTEGRATING 4 MG TAB PO ONE (07:02)
[2016-10-29] MEDS ORDERED: NS 1,000 ML IV ONE (07:02)
[2016-10-29] MEDS ORDERED: CITRIC ACID/SODIUM CITRATE 30 ML UDCUP PO ONE (07:02)
[2016-10-29] MEDS ORDERED: LIDOCAINE 2% 5 ML SDV ID ONE (07:02)
[2016-10-29] MEDS: SIMETHICONE 80 MG TAB CHEW PO SCH ×4 (09:22→21:18)
[2016-10-29] MEDS: OXcarbazepine 300 MG TAB PO SCH ×2 (09:22→21:18)
[2016-10-29] MEDS: OMEGA-3 FATTY ACIDS 1,000 MG CAP PO SCH (09:22)
[2016-10-29] MEDS: ALLEGRA-D PO SCH ×2 (09:22→21:28)
[2016-10-29] MEDS: CETIRIZINE 10 MG TAB PO SCH (09:27)
[2016-10-29] MEDS: PSEUDOEPHEDRINE HCL 30 MG TAB PO SCH (09:27)
[2016-10-29] MEDS: LORazepam 0.5 MG TAB PO PRN ×2 (11:02→17:16)
--- NOTE | 2016-10-29 14:25 | SOAPPROG ---
SOAP Progress Note Assessment/Plan: Assessment: Plan: 10/27/16 15:39 Received Invega Sustenna today. Will [facility], monitor. 10/28/16 15:23 Remains hostile, agitated. Will [facility]: ECT. 10/29/16 14:25 No significant change. CCM. Subjective: Pt seen, discussed with staff. Remains irritable, hostile. Demanded Ketamine this morning for ECT and was angry when I told him he wasn't a good candidate for it. He then underwent ECT without c/o or complication. Objective: Vital Signs Temp Pulse Resp BP Pulse Ox 36.7 C 75 13 106/66 97 10/29/16 12:13 10/29/16 12:13 10/29/16 10:20 10/29/16 12:13 10/29/16 12:13 MSE: Moderately agitated, guarded. Affect is irritable. Mood is "bad." TP generally disorganized. TC reveals paranoia, poor reality testing. - Time Spent With Patient Time Spent With Patient: 35" - Pending Discharge Pending Discharge Within 24 Hours: No Pending Discharge Within 48 Hours: No ICD10 Worksheet Patient Problems: Problems Problem Status Onset Bipolar affective disorder, current episode manic Acute
[2016-10-29] MEDS: IBUPROFEN 600 MG TAB PO PRN (17:16)
[2016-10-29] MEDS: clonazePAM 1 MG TAB PO SCH (21:17)
[2016-10-30] MEDS: ALLEGRA-D PO SCH ×2 (06:05→20:13)
[2016-10-30] MEDS: SIMETHICONE 80 MG TAB CHEW PO SCH ×4 (07:56→21:24)
[2016-10-30] MEDS: CETIRIZINE 10 MG TAB PO SCH ×2 (09:14→09:39)
[2016-10-30] MEDS: OXcarbazepine 300 MG TAB PO SCH ×2 (09:14→20:13)
[2016-10-30] MEDS: PSEUDOEPHEDRINE HCL 30 MG TAB PO SCH (09:14)
[2016-10-30] MEDS: OMEGA-3 FATTY ACIDS 1,000 MG CAP PO SCH (09:14)
[2016-10-30] MEDS: LORazepam 0.5 MG TAB PO PRN ×2 (09:36→16:27)
[2016-10-30] MEDS: NICOTINE POLACRILEX 2 MG GUM B PRN (11:32)
--- NOTE | 2016-10-30 14:51 | SOAPPROG ---
ERIC Progress Note Assessment/Plan: Assessment: Plan: 10/30/16 14:33 DAY 11/19' UPDATE/EXAM: Nursing reports that pt is improving in paced manner with better behavioral control, c/w cares and meds; is less intrusive, verbally aggressive, and preoccupied with looking at the female patients and/or behaving with inappropriate attention; is attending some groups/ on direct exam pt remains calm, cooperative, conversant; answers question about past history with particularly interest in discussing his dx of ADD; response to reintegrative input during the session; did reinforce working with the rx plan here to move onto [facility] and that addressing his ADD for ? of rx would be followed up at [facility] which he accepted appropriately. ASSESSMENT/PLAN: paced recompensation in 31 YO swm with remotely dx'd SAD, ADD, Eating Disorder - admitted less than 1 wk after 1 month inpt course at where he received COM ECT and medications/ no changes in meds or management plan Objective: Vital Signs Temp Pulse Resp BP Pulse Ox 36.2 C 62 16 92/53 L 95 10/30/16 05:54 10/30/16 05:54 10/30/16 05:54 10/30/16 05:54 10/30/16 05:54 ICD10 Worksheet Patient Problems: Problems Problem Status Onset Bipolar affective disorder, current episode manic Acute
[2016-10-30] MEDS: IBUPROFEN 600 MG TAB PO PRN (16:26)
[2016-10-30] MEDS: clonazePAM 1 MG TAB PO SCH (20:13)
--- NOTE | 2016-10-31 06:39 | SOAPPROG ---
ERIC Progress Note Assessment/Plan: Assessment: Plan: 10/30/16 14:33 DAY UPDATE/EXAM: Nursing reports that pt is improving in paced manner with better behavioral control, c/w cares and meds; is less intrusive, verbally aggressive, and preoccupied with looking at the female patients and/or behaving with inappropriate attention; is attending some groups/ on direct exam pt remains calm, cooperative, conversant; answers question about past history with particularly interest in discussing his dx of ADD; response to reintegrative input during the session; did reinforce working with the rx plan here to move back to [facility] and that addressing his ADD for ? of rx would be followed up at which he accepted appropriately. ASSESSMENT/PLAN: paced recompensation in 31 Yyo SWM with remotely dx'd SAD, ADD , Eating Disorder - admitted less than 1 wk after 1 month inpt course at where he received COM ECT and medications/ no changes in meds or management plan 10/31/16 DAY UPDATE/EXAM: Objective: Vital Signs Temp Pulse Resp BP Pulse Ox 36.2 C 62 16 92/53 L 95 10/30/16 05:54 10/30/16 05:54 10/30/16 05:54 10/30/16 05:54 10/30/16 05:54 ICD10 Worksheet Patient Problems: Problems Problem Status Onset Bipolar affective disorder, current episode manic Acute
[2016-10-31] MEDS: ALLEGRA-D PO SCH ×2 (08:37→20:24)
[2016-10-31] MEDS: OXcarbazepine 300 MG TAB PO SCH ×2 (08:38→18:51)
[2016-10-31] MEDS: SIMETHICONE 80 MG TAB CHEW PO SCH ×4 (08:38→20:24)
[2016-10-31] MEDS: OMEGA-3 FATTY ACIDS 1,000 MG CAP PO SCH (08:38)
[2016-10-31] MEDS: PSEUDOEPHEDRINE HCL 30 MG TAB PO SCH (08:38)
[2016-10-31] MEDS: LORazepam 0.5 MG TAB PO PRN (08:51)
[2016-10-31] MEDS: CETIRIZINE 10 MG TAB PO SCH (08:56)
[2016-10-31] MEDS: NICOTINE POLACRILEX 2 MG GUM B PRN ×3 (09:08→13:06)
--- NOTE | 2016-10-31 13:34 | SOAPPROG ---
ERIC Progress Note Assessment/Plan: Assessment: Plan: 10/30/16 14:33 DAY 11/19' UPDATE/EXAM: Nursing reports that pt is improving in paced manner with better behavioral control, c/w cares and meds; is less intrusive, verbally aggressive, and preoccupied with looking at the female patients and/or behaving with inappropriate attention; is attending some groups/ on direct exam pt remains calm, cooperative, conversant; answers question about past history with particularly interest in discussing his dx of ADD; response to reintegrative input during the session; did reinforce working with the rx plan here to move back to [facility] [place] and that addressing his ADD for ? of rx would be followed up at which he accepted appropriately. ASSESSMENT/PLAN: paced recompensation in 31 yo SWM with remotely dx'd SAD, ADD, Eating Disorder - admitted less than 1 wk after 1 month inpt course at where he received COM ECT and medications/ no changes in meds or management plan 10/31/16 11:30 DAY 02/19' UPDATE/EXAM: Nursing reports pt , while improving, continues to be intrusive with selective female patient and require applied limit and redirection; is engaging rx plan including limits with compliance/ again on direct exam pt relatively calm, cooperative, conversant using his concrete staccato style of speech; I reiterated directions about stopping his intrusiveness with female pts , changed prn Ativan to Klonopin at his request and deferred Vicodin requests; reinforced compliance with dc planning as he's agreeing to return to and working with Dr Barrera ASSESSMENT/PLAN: paced improvement continues; early dc planning phase/ no changes in meds o/t prn BZ; CR with limits focus discussed with Nursing Objective: Vital Signs Temp Pulse Resp BP Pulse Ox 36.3 C 88 14 112/74 96 10/31/16 06:38 10/31/16 06:38 10/31/16 06:38 10/31/16 06:38 10/31/16 06:38 ICD10 Worksheet Patient Problems: Problems Problem Status Onset Bipolar affective disorder, current episode manic Acute
[2016-10-31] MEDS: clonazePAM 0.5 MG TAB PO PRN (13:54)
[2016-10-31] MEDS: NICOTINE 21 MG/24 HR PATCH TD SCH (13:54)
[2016-10-31] MEDS: clonazePAM 1 MG TAB PO SCH (18:51)
[2016-10-31] MEDS: IBUPROFEN 600 MG TAB PO PRN (20:27)
[2016-11-01] MEDS ORDERED: CITRIC ACID/SODIUM CITRATE 30 ML UDCUP PO ONE (05:00)
[2016-11-01] MEDS ORDERED: ONDANSETRON DISINTEGRATING 4 MG TAB PO ONE (05:00)
[2016-11-01] MEDS ORDERED: NS 1,000 ML IV ONE (05:00)
[2016-11-01] MEDS ORDERED: LIDOCAINE 2% 5 ML SDV ID ONE (05:00)
[2016-11-01] MEDS: ALLEGRA-D PO SCH ×2 (05:43→10:06)
--- NOTE | 2016-11-01 05:55 | SOAPPROG ---
ERIC Progress Note Assessment/Plan: Assessment: Plan: 10/30/16 14:33 DAY 11/19' UPDATE/EXAM: Nursing reports that pt is improving in paced manner with better behavioral control, c/w cares and meds; is less intrusive, verbally aggressive, and preoccupied with looking at the female patients and/or behaving with inappropriate attention; is attending some groups/ on direct exam pt remains calm, cooperative, conversant; answers question about past history with particularly interest in discussing his dx of ADD; response to reintegrative input during the session; did reinforce working with the rx plan here to move back to [facility] and that addressing his ADD for ? of rx would be followed up at which he accepted appropriately. ASSESSMENT/PLAN: paced recompensation in 31 yo SWM with remotely dx'd SAD, ADD, Eating Disorder - admitted less than 1 wk after 1 month inpt course at where he received COM ECT and medications/ no changes in meds or management plan 10/31/16 11:30 DAY 02/19' UPDATE/EXAM: Nursing reports pt , while improving, continues to be intrusive with selective female patients and require applied limit and redirection; is engaging rx plan including limits with compliance/ again on direct exam pt relatively calm, cooperative, conversant using his concrete staccato style of speech; I reiterated directions about stopping his intrusiveness with female pts , changed prn Ativan to Klonopin at his request and deferred Vicodin requests; reinforced compliance with DC planning as he's agreeing to return to and working with Dr Barrera ASSESSMENT/PLAN: paced improvement continues; early dc planning phase/ no changes in meds o/t prn BZ; CR with limits focus discussed with Nursing Objective: Vital Signs Temp Pulse Resp BP Pulse Ox 36.3 C 88 14 112/74 96 10/31/16 06:38 10/31/16 06:38 10/31/16 06:38 10/31/16 06:38 10/31/16 06:38 ICD10 Worksheet Patient Problems: Problems Problem Status Onset Bipolar affective disorder, current episode manic Acute
[2016-11-01] MEDS ORDERED: ONDANSETRON DISINTEGRATING 4 MG TAB ONE (07:41)
[2016-11-01] MEDS ORDERED: CITRIC ACID/SODIUM CITRATE 30 ML UDCUP ONE (07:41)
[2016-11-01] MEDS ORDERED: IBUPROFEN 200 MG TAB PO ONE (08:49)
[2016-11-01] MEDS: NICOTINE 21 MG/24 HR PATCH TD SCH (10:06)
[2016-11-01] MEDS: OMEGA-3 FATTY ACIDS 1,000 MG CAP PO SCH (10:06)
[2016-11-01] MEDS: SIMETHICONE 80 MG TAB CHEW PO SCH ×4 (10:06→23:22)
[2016-11-01] MEDS: OXcarbazepine 300 MG TAB PO SCH ×2 (10:07→21:55)
[2016-11-01] MEDS: clonazePAM 0.5 MG TAB PO PRN ×2 (10:10→12:25)
[2016-11-01] MEDS: PSEUDOEPHEDRINE HCL 30 MG TAB PO SCH (10:38)
[2016-11-01] MEDS: NICOTINE POLACRILEX 2 MG GUM B PRN (12:16)
--- NOTE | 2016-11-01 14:32 | SOAPPROG ---
SOAP Progress Note Assessment/Plan: Assessment: Plan: 10/27/16 15:39 Received Invega Sustenna today. Will [facility], monitor. 10/28/16 15:23 Remains hostile, agitated. Will [facility]: ECT. 10/29/16 14:25 No significant change. CCM. 11/01/16 14:31 Improved over the weekend. Plan is to return to tomorrow if all is well. Will continue twice weekly ECT for now. Subjective: Pt seen, discussed with staff. More pleasant and interactive this morning. Jokes several times, smiles and laughs appropriately. Calmer in milieu as well. Underwent unilateral ECT without complication this morning. Objective: Vital Signs Temp Pulse Resp BP Pulse Ox 36.7 C 74 13 120/74 95 11/01/16 11:20 11/01/16 11:20 11/01/16 11:20 11/01/16 11:20 11/01/16 11:20 MSE: Calm, coop. Affect is brighter, less irritable. Mood is "OK." TP more linear. TC reveals less paranoia, more engagement. - Time Spent With Patient Time Spent With Patient: 35" - Pending Discharge Pending Discharge Within 24 Hours: No Pending Discharge Within 48 Hours: No ICD10 Worksheet Patient Problems: Problems Problem Status Onset Bipolar affective disorder, current episode manic Acute
[2016-11-01] MEDS: clonazePAM 1 MG TAB PO SCH (21:54)
[2016-11-01] MEDS: IBUPROFEN 600 MG TAB PO PRN (22:09)
[2016-11-02] MEDS: ALLEGRA-D PO SCH ×2 (08:12→19:15)
[2016-11-02] MEDS: OXcarbazepine 300 MG TAB PO SCH ×2 (08:12→19:14)
[2016-11-02] MEDS: OMEGA-3 FATTY ACIDS 1,000 MG CAP PO SCH (08:12)
[2016-11-02] MEDS: PSEUDOEPHEDRINE HCL 30 MG TAB PO SCH (08:12)
[2016-11-02] MEDS: NICOTINE 21 MG/24 HR PATCH TD SCH (08:12)
[2016-11-02] MEDS: SIMETHICONE 80 MG TAB CHEW PO SCH ×4 (08:12→22:08)
[2016-11-02] MEDS: IBUPROFEN 600 MG TAB PO PRN ×2 (10:42→16:43)
[2016-11-02] MEDS: clonazePAM 0.5 MG TAB PO PRN ×2 (10:42→16:44)
--- NOTE | 2016-11-02 13:43 | SOAPPROG ---
SOAP Progress Note Assessment/Plan: Assessment: Plan: 10/27/16 15:39 Received Invega Sustenna today. Will [facility], monitor. 10/28/16 15:23 Remains hostile, agitated. Will [facility]: ECT. 10/29/16 14:25 No significant change. CCM. 11/01/16 14:31 Improved over the weekend. Plan is to return to tomorrow if all is well. Will continue twice weekly ECT for now. 11/02/16 13:43 Continued improvement. I will titrate Trileptal. I am hesitant to change course with his regimen at this point as he is improving. Subjective: Pt seen, discussed with staff. Reports feeling irritable due to a h/a. I challenged him on his overall irritability and he demonstrates poor insight into the link between this and his mood. He is confrontational at first, but calms and is pleasantly conversant. Unhappy that he wont be going to today. Dr. Daniel wants him to go back on Clozaril or lithium. He does not want to do this. Is agreeable to increasing Trileptal, however. Objective: Vital Signs Temp Pulse Resp BP Pulse Ox 36.6 C 68 12 113/54 L 94 11/02/16 06:00 11/02/16 06:00 11/02/16 06:00 11/02/16 06:00 11/02/16 06:00 MSE: Calm, cooperative. Affect is hostile at first, generally euthymic after. Mood is "bad because of my headache." TP is linear. TC reveals no overt psychosis. - Time Spent With Patient Time Spent With Patient: 25" ICD10 Worksheet Patient Problems: Problems Problem Status Onset Bipolar affective disorder, current episode manic Acute
[2016-11-02] MEDS ORDERED: OXcarbazepine 300 MG TAB PO ONE (13:45)
[2016-11-02] MEDS: clonazePAM 1 MG TAB PO SCH (19:14)
[2016-11-03] MEDS: NICOTINE 21 MG/24 HR PATCH TD SCH (07:51)
[2016-11-03] MEDS: SIMETHICONE 80 MG TAB CHEW PO SCH ×4 (07:52→21:08)
[2016-11-03] MEDS: IBUPROFEN 600 MG TAB PO PRN ×2 (07:52→14:06)
[2016-11-03] MEDS: OMEGA-3 FATTY ACIDS 1,000 MG CAP PO SCH (07:52)
[2016-11-03] MEDS: clonazePAM 0.5 MG TAB PO PRN ×2 (07:52→14:08)
[2016-11-03] MEDS: NICOTINE POLACRILEX 2 MG GUM B PRN (07:52)
[2016-11-03] MEDS: OXcarbazepine 300 MG TAB PO SCH ×2 (07:53→21:07)
[2016-11-03] MEDS: ALLEGRA-D PO SCH ×2 (07:53→21:06)
[2016-11-03] MEDS: MAG HYDROX/AL HYDROX/SIMETH 30 ML UDCUP PO PRN (10:16)
--- NOTE | 2016-11-03 14:45 | SOAPPROG ---
SOAP Progress Note Assessment/Plan: Assessment: Plan: 10/27/16 15:39 Received Invega Sustenna today. Will [facility], monitor. 10/28/16 15:23 Remains hostile, agitated. Will [facility], inc: ECT. 10/29/16 14:25 No significant change. CCM. 11/01/16 14:31 Improved over the weekend. Plan is to return to tomorrow if all is well. Will continue twice weekly ECT for now. 11/02/16 13:43 Continued improvement. I will titrate Trileptal. I am hesitant to change course with his regimen at this point as he is improving. 11/03/16 14:45 No interval change. Will [facility], encourage pt to consider med change recommendations made by outpt team. Hope to see further improvement with titration of Trileptal. Subjective: Pt seen, discussed with staff. Reports feeling "ready to get out of here today. " Still intrusive, hostile at times, oppositional in a regressed way. He stuck his finger in my face today and demanded to be seen next while I was talking to another patient. Continues to exhibit poor interpersonal boundaries , especially with females. Continues to refuse medication changes. Objective: Vital Signs Temp Pulse Resp BP Pulse Ox 36.4 C 68 13 96/54 L 92 11/03/16 06:00 11/03/16 06:00 11/03/16 06:00 11/03/16 06:00 11/03/16 06:00 MSE: Moderately agitated, intrusive. Affect is constricted, angry, able to soften as interview progresses. Mood is "fine." TP generally linear though perseverates on persecutory themes. TC reveals paranoia. - Time Spent With Patient Time Spent With Patient: 15" - Pending Discharge Pending Discharge Within 24 Hours: No Pending Discharge Within 48 Hours: No ICD10 Worksheet Patient Problems: Problems Problem Status Onset Bipolar affective disorder, current episode manic Acute
[2016-11-03] MEDS: clonazePAM 1 MG TAB PO SCH (21:07)
[2016-11-04] MEDS: ALLEGRA-D PO SCH ×2 (08:04→19:10)
[2016-11-04] MEDS: OXcarbazepine 300 MG TAB PO SCH (08:05)
[2016-11-04] MEDS: SIMETHICONE 80 MG TAB CHEW PO SCH ×4 (08:05→21:21)
[2016-11-04] MEDS: OMEGA-3 FATTY ACIDS 1,000 MG CAP PO SCH (08:05)
[2016-11-04] MEDS: NICOTINE 21 MG/24 HR PATCH TD SCH (08:06)
[2016-11-04] MEDS: clonazePAM 0.5 MG TAB PO PRN ×2 (09:18→12:37)
[2016-11-04] MEDS: IBUPROFEN 600 MG TAB PO PRN ×2 (10:24→16:33)
[2016-11-04] MEDS: ACETAMINOPHEN 325 MG TAB PO PRN (14:29)
--- NOTE | 2016-11-04 16:13 | SOAPPROG ---
SOAP Progress Note Assessment/Plan: Assessment: Plan: 10/27/16 15:39 Received Invega Sustenna today. Will [facility], monitor. 10/28/16 15:23 Remains hostile, agitated. Will [facility], inc: ECT. 10/29/16 14:25 No significant change. CCM. 11/01/16 14:31 Improved over the weekend. Plan is to return to tomorrow if all is well. Will continue twice weekly ECT for now. 11/02/16 13:43 Continued improvement. I will titrate Trileptal. I am hesitant to change course with his regimen at this point as he is improving. 11/03/16 14:45 No interval change. Will [facility], encourage pt to consider med change recommendations made by outpt team. Hope to see further improvement with titration of Trileptal. 11/04/16 16:15 Continued improvement. Will make med changes, monitor. Subjective: Pt seen, discussed with staff. Reports being agreeable to taking lithium and clozaril now. The risks, benefits and alternatives of this are reviewed with him. He continues to calm. More appropriate and less hostile or demanding in the milieu. Remains rather abrupt and intrusive at times, but not threatening. Objective: Vital Signs Temp Pulse Resp BP Pulse Ox 36.8 C 82 14 105/75 96 11/04/16 06:00 11/04/16 06:00 11/04/16 06:00 11/04/16 06:00 11/04/16 06:00 MSE: Calm, coop. Intense at first, though calms. Able to laugh and joke. Affect is constricted, not hostile. Mood is "fine." TP generally linear. TC reveals some paranoia. - Time Spent With Patient Time Spent With Patient: 25" ICD10 Worksheet Patient Problems: Problems Problem Status Onset Bipolar affective disorder, current episode manic Acute
[2016-11-04] MEDS: cloZAPine 25 MG TAB PO SCH (19:08)
[2016-11-04] MEDS: clonazePAM 1 MG TAB PO SCH (19:16)
[2016-11-04] MEDS: LITHIUM CARBONATE ER 300 MG TAB PO SCH ×2 (19:16→21:15)
[2016-11-05] MEDS ORDERED: NS 1,000 ML IV ONE (06:00)
[2016-11-05] MEDS ORDERED: CITRIC ACID/SODIUM CITRATE 30 ML UDCUP PO ONE (06:00)
[2016-11-05] MEDS ORDERED: LIDOCAINE 2% 5 ML SDV ID ONE (06:00)
[2016-11-05] MEDS ORDERED: ONDANSETRON DISINTEGRATING 4 MG TAB PO ONE (06:00)
[2016-11-05] MEDS: ALLEGRA-D PO SCH ×2 (06:15→19:16)
[2016-11-05] MEDS: SIMETHICONE 80 MG TAB CHEW PO SCH ×4 (10:22→19:16)
[2016-11-05] MEDS: NICOTINE 21 MG/24 HR PATCH TD SCH ×2 (10:22→14:32)
[2016-11-05] MEDS: OMEGA-3 FATTY ACIDS 1,000 MG CAP PO SCH (10:22)
[2016-11-05] MEDS: clonazePAM 0.5 MG TAB PO PRN (14:28)
[2016-11-05] MEDS: IBUPROFEN 600 MG TAB PO PRN (14:29)
[2016-11-05] MEDS: NICOTINE POLACRILEX 2 MG GUM B PRN (14:32)
--- NOTE | 2016-11-05 14:44 | SOAPPROG ---
ERIC Progress Note Assessment/Plan: Assessment: Plan: 10/27/16 15:39 Received Invega Sustenna today. Will [facility], monitor. 10/28/16 15:23 Remains hostile, agitated. Will [facility], inc: ECT. 10/29/16 14:25 No significant change. CCM. 11/01/16 14:31 Improved over the weekend. Plan is to return to tomorrow if all is well. Will continue twice weekly ECT for now. 11/02/16 13:43 Continued improvement. I will titrate Trileptal. I am hesitant to change course with his regimen at this point as he is improving. 11/03/16 14:45 No interval change. Will [facility], encourage pt to consider med change recommendations made by outpt team. Hope to see further improvement with titration of Trileptal. 11/04/16 16:15 Continued improvement. Will make med changes, monitor. 11/05/16 14:44 Some regression related to (understandable) frustration over d/c plan. CCM. Subjective: Pt seen, discussed with staff. Reports feeling "frustrated and mad" that he may not go to today. Called someone and was swearing on the phone. May have been Dr. Daniel's voice mail. He was pleasant and cooperative with me in ECT today. Demonstrated good insight and a sense of humor. Underwent ECT without complication. Objective: Vital Signs Temp Pulse Resp BP Pulse Ox 37.3 C 77 14 106/64 94 11/05/16 10:05 11/05/16 10:05 11/05/16 10:05 11/05/16 10:05 11/05/16 10:05 MSE: Calm, coop. Affect is better modulated, smiling at times. Mood is "pretty good." TP linear. TC reveals ongoing mild paranoia. Denies halluc's. - Time Spent With Patient Time Spent With Patient: 35" ICD10 Worksheet Patient Problems: Problems Problem Status Onset Bipolar affective disorder, current episode manic Acute
[2016-11-05] MEDS: clonazePAM 1 MG TAB PO SCH (19:15)
[2016-11-05] MEDS: LITHIUM CARBONATE ER 300 MG TAB PO SCH (19:16)
[2016-11-05] MEDS: cloZAPine 25 MG TAB PO SCH (19:16)
[2016-11-06] MEDS: NICOTINE 21 MG/24 HR PATCH TD SCH (08:10)
[2016-11-06] MEDS: OMEGA-3 FATTY ACIDS 1,000 MG CAP PO SCH (08:10)
[2016-11-06] MEDS: ALLEGRA-D PO SCH ×2 (08:10→20:15)
[2016-11-06] MEDS: SIMETHICONE 80 MG TAB CHEW PO SCH ×4 (08:10→20:15)
[2016-11-06] MEDS: MAG HYDROX/AL HYDROX/SIMETH 30 ML UDCUP PO PRN (12:43)
[2016-11-06] MEDS: IBUPROFEN 600 MG TAB PO PRN (14:09)
--- NOTE | 2016-11-06 15:05 | SOAPPROG ---
SOAP Progress Note Assessment/Plan: Assessment: 31yo CM with SZA d/o, improving w/ECT and med changes. on court-ordered treatment. 11/06/16 14:43 per staff, slept 8hr. angry about discharge being delayed twice this week and not having a set date. On interview, allowed to vent frustrations around his discharge. feels no one cares. does not feel depressed. denies SI or any psychotic sxs. feels angry but feels he can stay in behav control. After felt less frustrated following venting his anger, pt began with several requests (since I am new to him), including if he can change Klonopin to Xanax or Valium, would like Adderall for his ADD, thinks sinuses are acting up and requested Sudafed be added, asks for caffeinated coffee, and then added that he has feet pain and would like Percoset but if not that at least incr Ibuprofen. Informed of plan for Clozapine uptitration over weekend before d/c, and pt agreed. Denied any s/e to current meds. However, expressed feeling that he did not have any mental health problems, and feels he is wasting his life staying at [facility], used to enjoy climbing. MSE: cooperative, disheveled unwashed hair, casually dressed, nml speech rate/ vol and articulate, mood "angry", affect congruent but then more calm as interview progressed, denied any AH/VH or any SI/HI. thoughts generally goal- directed, although some perseveration on discharge not happening as planned and with some drug-seeking requests. insight poor, jdgmt limited. Did not appear in any pain or discomfort. Did not appear with any medication s/e. Nml gait, no tremor. Plan: cont current meds, incr Clozapine to 50mg qhs. no ibuprofen change at this time. note NSAIDS can incr Li+ level. Objective: Vital Signs Temp Pulse Resp BP Pulse Ox 36.7 C 90 14 109/56 L 96 11/06/16 10:33 11/06/16 06:00 11/06/16 06:00 11/06/16 10:33 11/06/16 10:33 Medications Generic Name Dose Route Start Last Admin Trade Name Freq PRN Reason Stop Dose Admin Floweree Carbonate 600 mg 11/04/16 21:00 11/05/16 19:16 Lithobid PO 05/03/17 20:59 600 mg HS SUKHDEEP Clonazepam 2 mg 10/25/16 21:00 11/05/16 19:15 Klonopin PO 04/23/17 20:59 2 mg HS SUKHDEEP Clonazepam 0.5 mg 10/31/16 13:23 11/05/16 14:28 Klonopin PO 04/29/17 13:29 0.5 mg BID PRN Anxiety Clozapine 25 mg 11/04/16 21:00 11/05/16 19:16 Clozaril PO 05/03/17 20:59 25 mg HS SUKHDEEP Olanzapine 10 mg 10/25/16 18:51 Zyprexa Zydis PO 04/23/17 18:50 Q4H PRN Agitation, Psychosis Olanzapine 10 mg 10/28/16 12:54 Zyprexa Im Injection IM 04/26/17 12:53 Q4 PRN psychosis Miscellaneous Medication 1 ea 11/05/16 21:00 11/06/16 08:10 Non-Formulary PO 04/25/17 08:59 1 tab BID SUKHDEEP - Time Spent With Patient Time Spent With Patient: 35min - Pending Discharge Pending Discharge Within 24 Hours: No Pending Discharge Within 48 Hours: No ICD10 Worksheet Patient Problems: Problems Problem Status Onset Bipolar affective disorder, current episode manic Acute
[2016-11-06] MEDS: clonazePAM 0.5 MG TAB PO PRN (16:23)
[2016-11-06] MEDS: clonazePAM 1 MG TAB PO SCH (20:14)
[2016-11-06] MEDS: LITHIUM CARBONATE ER 300 MG TAB PO SCH (20:15)
[2016-11-06] MEDS: cloZAPine 25 MG TAB PO SCH (20:23)
[2016-11-07] MEDS: SIMETHICONE 80 MG TAB CHEW PO SCH ×4 (07:49→22:26)
[2016-11-07] MEDS: cloZAPine 25 MG TAB PO SCH (07:49)
[2016-11-07] MEDS: NICOTINE 21 MG/24 HR PATCH TD SCH (07:49)
[2016-11-07] MEDS: OMEGA-3 FATTY ACIDS 1,000 MG CAP PO SCH (07:49)
[2016-11-07] MEDS: ALLEGRA-D PO SCH ×2 (07:50→19:32)
[2016-11-07] MEDS: clonazePAM 0.5 MG TAB PO PRN (13:32)
[2016-11-07] MEDS: IBUPROFEN 600 MG TAB PO PRN (13:32)
--- NOTE | 2016-11-07 13:53 | SOAPPROG ---
SOAP Progress Note Assessment/Plan: Assessment: 31yo CM with SZA d/o, improving w/ECT and med changes. on court-ordered treatment. 11/06/16 14:43 per staff, slept 8hr. angry about discharge being delayed twice this week and not having a set d/c date. On interview, allowed to vent frustrations around his discharge. feels no one cares. does not feel depressed. denies SI or any psychotic sxs. feels angry but feels he can stay in behav control. After felt less frustrated following venting his anger, pt began with several requests (since I am new to him), including if he can change Klonopin to Xanax or Valium, would like Adderall for his ADD, thinks sinuses are acting up and requested Sudafed be added, asks for caffeinated coffee, and then added that he has feet pain and would like Percoset but if not that at least incr Ibuprofen. Informed of plan for Clozapine uptitration over weekend before d/c, and pt agreed. Denied any s/e to current meds. Feels that he does NOT have any mental health problems, and feels he is wasting his life staying at [facility], used to enjoy climbing. MSE: cooperative, disheveled unwashed hair, casually dressed, nml speech rate/ vol and articulate, mood "angry", affect congruent but then more calm as interview progressed, denied any AH/VH or any SI/HI. thoughts generally goal- directed, although some perseveration on discharge not happening as planned and with some drug-seeking requests. insight poor, jdgmt limited. Did not appear in any pain or discomfort. Did not appear with any medication s/e. Nml gait, no tremor. Plan: -cont current meds, incr Clozapine to 50mg qhs. -no ibuprofen change at this time. note NSAIDS can incr Li+ level. 11/07/16 14:59 per staff, slept 9.5hr. resting in bed, disheveled, irritable, angry. declined interview. "I'm tired, just leave".denied SI or any hallucinations. Plan: -noted clozapine was given this am, likely causing am sedation. will reschedule to [facility]. no other s/e noted besides sedation. -cont other meds as Rxd. Objective: Vital Signs Temp Pulse Resp BP Pulse Ox 36.7 C 90 14 109/56 L 96 11/06/16 10:33 11/06/16 06:00 11/06/16 06:00 11/06/16 10:33 11/06/16 10:33 - Time Spent With Patient Time Spent With Patient: <15min - Pending Discharge Pending Discharge Within 24 Hours: No Pending Discharge Within 48 Hours: No ICD10 Worksheet Patient Problems: Problems Problem Status Onset Bipolar affective disorder, current episode manic Acute
[2016-11-07] MEDS: clonazePAM 1 MG TAB PO SCH (19:31)
[2016-11-07] MEDS: LITHIUM CARBONATE ER 300 MG TAB PO SCH (19:32)
[2016-11-08] MEDS ORDERED: NS 1,000 ML IV ONE (05:00)
[2016-11-08] MEDS ORDERED: LIDOCAINE 2% 5 ML SDV ID ONE (05:00)
[2016-11-08] MEDS ORDERED: ONDANSETRON DISINTEGRATING 4 MG TAB PO ONE (05:00)
[2016-11-08] MEDS ORDERED: CITRIC ACID/SODIUM CITRATE 30 ML UDCUP PO ONE (05:00)
[2016-11-08] MEDS: ALLEGRA-D PO SCH ×2 (09:35→19:59)
[2016-11-08] MEDS: NICOTINE 21 MG/24 HR PATCH TD SCH (09:35)
[2016-11-08] MEDS: OMEGA-3 FATTY ACIDS 1,000 MG CAP PO SCH (09:35)
[2016-11-08] MEDS: SIMETHICONE 80 MG TAB CHEW PO SCH ×5 (09:36→22:01)
[2016-11-08] MEDS: clonazePAM 0.5 MG TAB PO PRN (11:55)
--- NOTE | 2016-11-08 17:25 | SOAPPROG ---
SOAP Progress Note Assessment/Plan: Assessment: Plan: 10/27/16 15:39 Received Invega Sustenna today. Will [facility], monitor. 10/28/16 15:23 Remains hostile, agitated. Will [facility], inc: ECT. 10/29/16 14:25 No significant change. CCM. 11/01/16 14:31 Improved over the weekend. Plan is to return to tomorrow if all is well. Will continue twice weekly ECT for now. 11/02/16 13:43 Continued improvement. I will titrate Trileptal. I am hesitant to change course with his regimen at this point as he is improving. 11/03/16 14:45 No interval change. Will [facility], encourage pt to consider med change recommendations made by outpt team. Hope to see further improvement with titration of Trileptal. 11/04/16 16:15 Continued improvement. Will make med changes, monitor. 11/05/16 14:44 Some regression related to (understandable) frustration over d/c plan. CCM. 11/08/16 17:24 Remains intermittently agitated, generally oppositional, regressed. This is most consistent with baseline character issues rather than acute illness. He is able to redirect. Will [facility], hope to see at least 48 hours of behavioral stability prior to d/c. Subjective: Pt seen, discussed with staff. Reports feeling "pretty good" this morning. Underwent ECT without complication. Dr. Russo informs me that pt swore at him and ordered him off the unit in a threatening manner on Tuesday. Pt admits this and briefly rants about Dr. Russo being a "dbag". He then calms and states, "I shouldn't have done that. I need to call him and apologize." Objective: Vital Signs Temp Pulse Resp BP Pulse Ox 36.6 C 69 16 117/66 95 11/08/16 10:37 11/08/16 10:37 11/08/16 10:37 11/08/16 10:37 11/08/16 10:37 MSE: Poorly groomed, interactive, coop. Affect is constricted at first, but softens. Mood is "pretty good." TP generally linear. TC reveals some paranoia , especially in regards to [facility] staff. - Time Spent With Patient Time Spent With Patient: 35" - Pending Discharge Pending Discharge Within 24 Hours: No Pending Discharge Within 48 Hours: No ICD10 Worksheet Patient Problems: Problems Problem Status Onset Bipolar affective disorder, current episode manic Acute
[2016-11-08] MEDS: clonazePAM 1 MG TAB PO SCH ×2 (21:21→22:01)
[2016-11-08] MEDS: LITHIUM CARBONATE ER 300 MG TAB PO SCH ×2 (21:21→22:01)
[2016-11-08] MEDS: cloZAPine 25 MG TAB PO SCH ×2 (21:21→22:01)
[2016-11-09] MEDS: ALLEGRA-D PO SCH ×2 (06:56→21:17)
[2016-11-09] MEDS: NICOTINE 21 MG/24 HR PATCH TD SCH (08:12)
[2016-11-09] MEDS: SIMETHICONE 80 MG TAB CHEW PO SCH ×4 (08:12→21:14)
[2016-11-09] MEDS: OMEGA-3 FATTY ACIDS 1,000 MG CAP PO SCH (08:12)
[2016-11-09] MEDS: IBUPROFEN 600 MG TAB PO PRN (10:16)
[2016-11-09] MEDS: clonazePAM 0.5 MG TAB PO PRN ×2 (11:57→17:25)
[2016-11-09] MEDS: NICOTINE POLACRILEX 2 MG GUM B PRN (11:57)
[2016-11-09] MEDS: CALCIUM CARBONATE 500 MG CHEWABLE TAB PO PRN (13:27)
--- NOTE | 2016-11-09 16:58 | SOAPPROG ---
SOAP Progress Note Assessment/Plan: Assessment: Plan: 10/27/16 15:39 Received Invega Sustenna today. Will [facility], monitor. 10/28/16 15:23 Remains hostile, agitated. Will [facility], inc: ECT. 10/29/16 14:25 No significant change. CCM. 11/01/16 14:31 Improved over the weekend. Plan is to return to tomorrow if all is well. Will continue twice weekly ECT for now. 11/02/16 13:43 Continued improvement. I will titrate Trileptal. I am hesitant to change course with his regimen at this point as he is improving. 11/03/16 14:45 No interval change. Will [facility], encourage pt to consider med change recommendations made by outpt team. Hope to see further improvement with titration of Trileptal. 11/04/16 16:15 Continued improvement. Will make med changes, monitor. 11/05/16 14:44 Some regression related to (understandable) frustration over d/c plan. CCM. 11/08/16 17:24 Remains intermittently agitated, generally oppositional, regressed. This is most consistent with baseline character issues rather than acute illness. He is able to redirect. Will [facility], hope to see at least 48 hours of behavioral stability prior to d/c. 11/09/16 16:58 Improving. [facility]. Subjective: Pt seen, discussed with staff. Reports feeling "pretty good." Light-hearted and engaging with me today. Calls me "Dr. Ke Horne" b/c of my shirts. He remains focused on need to d/c to . Remorseful about behaviors of the other day. Compliant with all meds. Objective: Vital Signs Temp Pulse Resp BP Pulse Ox 36.6 C 80 16 105/60 93 11/09/16 06:00 11/09/16 06:00 11/09/16 06:00 11/09/16 06:00 11/09/16 06:00 MSE: Calm, coop, engagingl. Affect is euthymic, stable, approp. Mood is "pretty good." TP linear. TC reveals some mild paranoia, but less so. - Time Spent With Patient Time Spent With Patient: 15" ICD10 Worksheet Patient Problems: Problems Problem Status Onset Bipolar affective disorder, current episode manic Acute
[2016-11-09] MEDS: clonazePAM 1 MG TAB PO SCH (21:14)
[2016-11-09] MEDS: cloZAPine 25 MG TAB PO SCH (21:14)
[2016-11-09] MEDS: LITHIUM CARBONATE ER 300 MG TAB PO SCH (21:14)
[2016-11-10] MEDS: SIMETHICONE 80 MG TAB CHEW PO SCH ×4 (08:10→20:12)
[2016-11-10] MEDS: NICOTINE 21 MG/24 HR PATCH TD SCH (08:11)
[2016-11-10] MEDS: OMEGA-3 FATTY ACIDS 1,000 MG CAP PO SCH (08:11)
[2016-11-10] MEDS: ALLEGRA-D PO SCH ×2 (08:11→20:09)
[2016-11-10] MEDS: clonazePAM 0.5 MG TAB PO PRN ×3 (08:16→16:32)
[2016-11-10] MEDS: IBUPROFEN 600 MG TAB PO PRN ×2 (10:03→16:30)
[2016-11-10] MEDS: OXcarbazepine 300 MG TAB PO SCH ×2 (10:53→20:08)
[2016-11-10] MEDS ORDERED: clonazePAM 0.5 MG TAB ONE (14:04)
[2016-11-10] MEDS: MAG HYDROX/AL HYDROX/SIMETH 30 ML UDCUP PO PRN (14:05)
--- NOTE | 2016-11-10 15:46 | SOAPPROG ---
SOAP Progress Note Assessment/Plan: Assessment: Plan: 10/27/16 15:39 Received Invega Sustenna today. Will [facility], monitor. 10/28/16 15:23 Remains hostile, agitated. Will [facility], inc: ECT. 10/29/16 14:25 No significant change. CCM. 11/01/16 14:31 Improved over the weekend. Plan is to return to tomorrow if all is well. Will continue twice weekly ECT for now. 11/02/16 13:43 Continued improvement. I will titrate Trileptal. I am hesitant to change course with his regimen at this point as he is improving. 11/03/16 14:45 No interval change. Will [facility], encourage pt to consider med change recommendations made by outpt team. Hope to see further improvement with titration of Trileptal. 11/04/16 16:15 Continued improvement. Will make med changes, monitor. 11/05/16 14:44 Some regression related to (understandable) frustration over d/c plan. CCM. 11/08/16 17:24 Remains intermittently agitated, generally oppositional, regressed. This is most consistent with baseline character issues rather than acute illness. He is able to redirect. Will [facility], hope to see at least 48 hours of behavioral stability prior to d/c. 11/09/16 16:58 Improving. CCM. 11/10/16 15:46 Continued improvement. Final med changes entered prior to d/c. Subjective: Pt seen, discussed with staff and Dr. Daniel. Has calmed significantly. Active in his care by discussing meds with Dr. Lay and agreeing to continue Li, restart Trileptal, d/c cloz and change clonazepam to diazepam. When I spoke with him later, he stated he wants to continue the clonazepam. Less irritable. Appropriately social on the unit. Objective: Vital Signs Temp Pulse Resp BP Pulse Ox 36.6 C 80 16 105/60 93 11/09/16 06:00 11/09/16 06:00 11/09/16 06:00 11/09/16 06:00 11/09/16 06:00 MSE: Calm, coop. Redirectable when he addresses me as "Hey." Affect is brighter, rail setter, smiling frequently. Mood is "OK." TP generally linear. TC reveals some paranoia. - Time Spent With Patient Time Spent With Patient: 25" ICD10 Worksheet Patient Problems: Problems Problem Status Onset Bipolar affective disorder, current episode manic Acute
[2016-11-10] MEDS: LITHIUM CARBONATE ER 300 MG TAB PO SCH (20:09)
[2016-11-10] MEDS: clonazePAM 1 MG TAB PO SCH (20:10)
[2016-11-11] MEDS: NICOTINE 21 MG/24 HR PATCH TD SCH (06:45)
[2016-11-11] MEDS: OXcarbazepine 300 MG TAB PO SCH ×2 (06:46→19:05)
[2016-11-11] MEDS: SIMETHICONE 80 MG TAB CHEW PO SCH ×4 (06:46→20:26)
[2016-11-11] MEDS: ALLEGRA-D PO SCH ×2 (06:47→20:26)
[2016-11-11] MEDS: OMEGA-3 FATTY ACIDS 1,000 MG CAP PO SCH (06:47)
[2016-11-11] MEDS: IBUPROFEN 600 MG TAB PO PRN ×2 (08:10→16:24)
[2016-11-11] MEDS: clonazePAM 0.5 MG TAB PO PRN ×2 (08:10→11:53)
[2016-11-11] MEDS: MAG HYDROX/AL HYDROX/SIMETH 30 ML UDCUP PO PRN ×2 (09:29→15:18)
[2016-11-11 11:30] LABS: LITHIUM 0.7 mEq/L (0.6-1.2)
[2016-11-11] MEDS: NICOTINE POLACRILEX 2 MG GUM B PRN (17:48)
[2016-11-11] MEDS: LITHIUM CARBONATE ER 300 MG TAB PO SCH (19:04)
[2016-11-11] MEDS: clonazePAM 1 MG TAB PO SCH (19:05)
[2016-11-11] MEDS: ACETAMINOPHEN 325 MG TAB PO PRN (19:08)
[2016-11-12] MEDS: ACETAMINOPHEN 325 MG TAB PO PRN (05:53)
[2016-11-12] MEDS: ALLEGRA-D PO SCH ×2 (05:53→19:13)
[2016-11-12] MEDS: IBUPROFEN 600 MG TAB PO PRN (05:56)
[2016-11-12] MEDS: OXcarbazepine 300 MG TAB PO SCH ×2 (10:43→19:14)
[2016-11-12] MEDS: OMEGA-3 FATTY ACIDS 1,000 MG CAP PO SCH (10:43)
[2016-11-12] MEDS: NICOTINE 21 MG/24 HR PATCH TD SCH (10:43)
[2016-11-12] MEDS: SIMETHICONE 80 MG TAB CHEW PO SCH ×4 (10:43→20:33)
[2016-11-12] MEDS: clonazePAM 0.5 MG TAB PO PRN ×2 (12:44→18:41)
[2016-11-12] MEDS: LITHIUM CARBONATE ER 300 MG TAB PO SCH (19:13)
[2016-11-12] MEDS: clonazePAM 1 MG TAB PO SCH (19:19)
[2016-11-13] MEDS: ALLEGRA-D PO SCH ×2 (05:31→19:46)
[2016-11-13] MEDS: clonazePAM 0.5 MG TAB PO PRN ×2 (05:31→16:11)
[2016-11-13] MEDS: OXcarbazepine 300 MG TAB PO SCH ×2 (07:51→19:46)
[2016-11-13] MEDS: IBUPROFEN 600 MG TAB PO PRN (07:51)
[2016-11-13] MEDS: SIMETHICONE 80 MG TAB CHEW PO SCH ×4 (07:51→22:16)
[2016-11-13] MEDS: OMEGA-3 FATTY ACIDS 1,000 MG CAP PO SCH (07:51)
[2016-11-13] MEDS: NICOTINE 21 MG/24 HR PATCH TD SCH (07:52)
[2016-11-13] MEDS ORDERED: LORazepam 0.5 MG TAB PO PRN (11:22)
[2016-11-13] MEDS: MAG HYDROX/AL HYDROX/SIMETH 30 ML UDCUP PO PRN (11:24)
[2016-11-13] MEDS: guaiFENesin 600 MG TAB.ER PO SCH ×2 (12:03→19:38)
--- NOTE | 2016-11-13 15:36 | SOAPPROG ---
SOAP Progress Note Assessment/Plan: Assessment: Plan: 10/27/16 15:39 Received Invega Sustenna today. Will [facility], monitor. 10/28/16 15:23 Remains hostile, agitated. Will [facility], inc: ECT. 10/29/16 14:25 No significant change. CCM. 11/01/16 14:31 Improved over the weekend. Plan is to return to tomorrow if all is well. Will continue twice weekly ECT for now. 11/02/16 13:43 Continued improvement. I will titrate Trileptal. I am hesitant to change course with his regimen at this point as he is improving. 11/03/16 14:45 No interval change. Will [facility], encourage pt to consider med change recommendations made by outpt team. Hope to see further improvement with titration of Trileptal. 11/04/16 16:15 Continued improvement. Will make med changes, monitor. 11/05/16 14:44 Some regression related to (understandable) frustration over d/c plan. CCM. 11/08/16 17:24 Remains intermittently agitated, generally oppositional, regressed. This is most consistent with baseline character issues rather than acute illness. He is able to redirect. Will [facility], hope to see at least 48 hours of behavioral stability prior to d/c. 11/09/16 16:58 Improving. CCM. 11/10/16 15:46 Continued improvement. Final med changes entered prior to d/c. 11/13/16 15:35 DOing well. CCM. Likely d/c on Tuesday. Subjective: Pt seen, discussed with staff. Pleasant and interactive. States he is ready for d/c on Tuesday. Enjoying music on the unit now. Irritability minimal. Compliant with all treatments. Approp on AG. Objective: Vital Signs Temp Pulse Resp BP Pulse Ox 36.4 C 79 12 101/65 93 11/13/16 06:17 11/13/16 06:17 11/13/16 06:17 11/13/16 06:17 11/13/16 06:17 MSE: Calm, coop. AFfect is brighter, less irritable. Mood is "OK." TP linear. TC reveals mild paranoia. - Time Spent With Patient Time Spent With Patient: 15" ICD10 Worksheet Patient Problems: Problems Problem Status Onset Bipolar affective disorder, current episode manic Acute
[2016-11-13] MEDS: clonazePAM 1 MG TAB PO SCH (19:36)
[2016-11-13] MEDS: LITHIUM CARBONATE ER 300 MG TAB PO SCH (19:38)
[2016-11-14] MEDS: NICOTINE 21 MG/24 HR PATCH TD SCH (08:02)
[2016-11-14] MEDS: OXcarbazepine 300 MG TAB PO SCH ×2 (08:02→20:09)
[2016-11-14] MEDS: guaiFENesin 600 MG TAB.ER PO SCH ×2 (08:02→20:09)
[2016-11-14] MEDS: OMEGA-3 FATTY ACIDS 1,000 MG CAP PO SCH (08:02)
[2016-11-14] MEDS: SIMETHICONE 80 MG TAB CHEW PO SCH ×3 (08:03→19:04)
[2016-11-14] MEDS: ALLEGRA-D PO SCH ×2 (08:04→20:08)
[2016-11-14] MEDS: IBUPROFEN 600 MG TAB PO PRN ×2 (09:39→16:51)
[2016-11-14] MEDS: clonazePAM 0.5 MG TAB PO PRN ×2 (09:40→16:51)
[2016-11-14] MEDS: MAG HYDROX/AL HYDROX/SIMETH 30 ML UDCUP PO PRN (10:04)
--- NOTE | 2016-11-14 11:19 | SOAPPROG ---
SOAP Progress Note Assessment/Plan: Assessment: Plan: 10/27/16 15:39 Received Invega Sustenna today. Will [facility], monitor. 10/28/16 15:23 Remains hostile, agitated. Will [facility], inc: ECT. 10/29/16 14:25 No significant change. CCM. 11/01/16 14:31 Improved over the weekend. Plan is to return to tomorrow if all is well. Will continue twice weekly ECT for now. 11/02/16 13:43 Continued improvement. I will titrate Trileptal. I am hesitant to change course with his regimen at this point as he is improving. 11/03/16 14:45 No interval change. Will [facility], encourage pt to consider med change recommendations made by outpt team. Hope to see further improvement with titration of Trileptal. 11/04/16 16:15 Continued improvement. Will make med changes, monitor. 11/05/16 14:44 Some regression related to (understandable) frustration over d/c plan. CCM. 11/08/16 17:24 Remains intermittently agitated, generally oppositional, regressed. This is most consistent with baseline character issues rather than acute illness. He is able to redirect. Will [facility], hope to see at least 48 hours of behavioral stability prior to d/c. 11/09/16 16:58 Improving. CCM. 11/10/16 15:46 Continued improvement. Final med changes entered prior to d/c. 11/13/16 15:35 DOing well. CCM. Likely d/c on Tuesday. 11/14/16 11:19 Doing well. CCM. ECT tomorrow with likely d/c after. Subjective: Pt seen, discussed with staff. REports feeling "good." Focused on several minor physical issues such as nasal congestion and gas. No behavioral issues or angry outbursts. Looking for to ECT and d/c tomorrow. Objective: Vital Signs Temp Pulse Resp BP Pulse Ox 36.4 C 80 12 102/55 L 93 11/13/16 06:17 11/14/16 06:00 11/13/16 06:17 11/14/16 06:00 11/14/16 06:00 MSE: Calm, coop. Affect is bright, smiling. Mood is "good." TP generally linear. TC reveals some ongoing paranoia. - Time Spent With Patient Time Spent With Patient: 15" - Pending Discharge Pending Discharge Within 24 Hours: Yes Pending Discharge Date: 11/15/16 Pending Discharge Time: 11:00 ICD10 Worksheet Patient Problems: Problems Problem Status Onset Bipolar affective disorder, current episode manic Acute
[2016-11-14] MEDS: LITHIUM CARBONATE ER 300 MG TAB PO SCH (20:09)
[2016-11-14] MEDS: clonazePAM 1 MG TAB PO SCH (20:09)
[2016-11-15] MEDS: SIMETHICONE 80 MG TAB CHEW PO SCH ×2 (00:37→09:04)
[2016-11-15] MEDS ORDERED: ONDANSETRON DISINTEGRATING 4 MG TAB PO ONE (05:00)
[2016-11-15] MEDS ORDERED: LIDOCAINE 2% 5 ML SDV ID ONE (05:00)
[2016-11-15] MEDS ORDERED: CITRIC ACID/SODIUM CITRATE 30 ML UDCUP PO ONE (05:00)
[2016-11-15] MEDS ORDERED: NS 1,000 ML IV ONE (05:00)
[2016-11-15] MEDS: ALLEGRA-D PO SCH (07:13)
[2016-11-15 08:56] VITALS: BP 112/42; PULSE 71; RESP 16; TEMP 97.7; O2SAT 94
[2016-11-15] MEDS: OXcarbazepine 300 MG TAB PO SCH (09:04)
[2016-11-15] MEDS: NICOTINE 21 MG/24 HR PATCH TD SCH (09:04)
[2016-11-15] MEDS: guaiFENesin 600 MG TAB.ER PO SCH (09:04)
[2016-11-15] MEDS: OMEGA-3 FATTY ACIDS 1,000 MG CAP PO SCH (09:04)
[2016-11-15] MEDS: clonazePAM 0.5 MG TAB PO PRN (10:18)
--- NOTE | 2016-11-15 22:25 | BDS ---
[f rep st] BEHAVIORAL HEALTH DISCHARGE SUMMARY REASON FOR ADMISSION: The patient is a 31-year-old, male with history of schizoaffective disorder. He was admitted to our facility due to acute agitation at his residential treatment progr am through [facility] at [facility]. He was recently in [facility] for 3 we eks, where he received court-ordered ECT and improve significantly. He was referred to me to do out patient maintenance ECT, and had 1 treatment prior to having some behavioral issues at [facility] and having to be sent to the Emergency Department. He was perseverating on violent themes of extrem mono violent movies, and appeared to be threatening others with a kitchen knife. He adamantly denied that, but clearly was irritable and labile when he arrived. A full description of events preceding admission can be found in his admission history dated 10/27/2016. ADMITTING DIAGNOSES: 1. Schizoaffective disorder, bipolar type, chronic with acute exacerbation. 2. Attention deficit hyperactivity disorder, by history. 3. Chronic allergic sinusitis. 4. 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 ADMISSION PHYSICAL EXAMINATION: Revealed some foot pain with some calluses on his feet, but no othe r identifiable findings. ADMISSION LABORATORY: CBC was normal. Serum chemistries were normal. Liver function was normal, u [facility] drug screen was negative for all substances, and lithium level was 0.7. HOSPITAL COURSE: The [facility] on his exi sting short-term certification. He was hostile and irritable, intrusive and pressured, and was freq uently demanding my time and staff time. He was angry that he was in the hospital, was demanding varsha hutchinson from the beginning. He stated that he was not going to take any further medications, and th at he was angry at the staff at [facility] for sending him to the hospital. He angrily denie d any of the statements made by [facility] staff in regard to his being threatening or not fo llowing rules. Despite his anger, at no time did he act out physically or aggressively toward other s. He generally followed the unit rules and was compliant with medications despite his statements t hat he may not be. We continued with ECT, increasing to 3 times a week for the first week, and then going to twice a week thereafter. He tolerated this extremely well, waking up from anesthesia very quickly and displaying no cognitive problems whatsoever. He stated that he improved significantly subjectively with ECT, and it was therefore continued. The patient's hospitalization was complicated by his anger and oppositionality toward the [facility] staff. He refused to talk with Dr. Russo and swore at him one occasion when he visited formerly [facility], and stated repeatedly he would not return to [facility] or work with [facility]. Eventually, he changed his mind on this, and stated that he would return there. Dr. Russo then r equested that the patient's meds be changed to a regimen of Zoloft and clozapine, which apparently uma adler had done well on in the past. He was agreeable to this, and the changes were initiated. Later, lazaro patient talked with his primary outpatient psychiatrist, Dr. Vangie Daniel, and they agreed that he would switch back to the combination of lithium and Trileptal, and continue his Invega Sustenna s hot without the clozapine. The patient was agreeable to this as well. He tolerated the lithium wel l with no side effects, and achieved a level of 0.7 on 600 mg at h.s., which was his previous dose. He also continued to take clonazepam 0.5 mg b.i.d. p.r.n., and 2 mg at h.s. with good effect. The patient gradually improved, and his affect softened considerably. By the time of discharge, he was no longer irritable or hostile, though occasionally would have a bajwa affect where he would sta re at people in what seemed to be a hostile way, but then he would smile and laugh. He was very int eractive and appropriate with me, and was redirectable from some of his intrusive behaviors. He was seen by Dr. Daniel, and felt to be appropriate for transfer prior to his discharge. Condition on discharge was stable. He affect was much brighter, less irritable, less hostile, and h is psychosis appeared to be at relative ebb. He was compliant with his medications, and stated he w ould be compliant with all the rules at the [facility]. DISCHARGE MEDICATIONS: Clonazepam 0.5 mg p.o. b.i.d., clonazepam 2 mg p.o. q.h.s., guaifenesin 600 mg b.i.d., lithium carbonate ER 600 mg p.o. q.h.s., Trileptal 600 mg b.i.d., simethicone 80 mg as ne eded, and Invega Sustenna 156 mg every 28 days. DISCHARGE DIAGNOSES: 1. Schizoaffective disorder, bipolar type, chronic with acute exacerbation. 2. Attention deficit hyperactivity disorder, by history. 3. Chronic allergic sinusitis. 4. Bilateral foot pain. 5. History of hyponatremia due to psychogenic polydipsia. 6. History of bulimia. 7. Chronic illness, out of home placement. DISPOSITION: The patient left the hospital with [facility] staff to go to [facility]. FOLLOWUP: Followup is with Dr. Daniel tomorrow at [facility]. LEGAL COURSE: The patient remained on a short-term certification held for [facility] by the [facility] at the time of discharge. /[id number]/[id number]
== END 2016-11-15 11:50 | DRG 885 ==
LOC: BBEH 18:20
PROVIDERS: ADMIT Psychiatry & Neurology Psychiatry; ATTEND Psychiatry & Neurology Psychiatry
PROC: GZB0ZZZ Electroconvulsive Therapy, Unilateral-Single Seizure (ICD-10-PCS; principal; 2016-10-27)
DX: F25.0 Schizoaffective disorder, bipolar type (principal); F90.1 Attention-deficit hyperactivity disorder, predominantly hyperactive type; R63.1 Polydipsia; E87.1 Hypo-osmolality and hyponatremia; M79.671 Pain in right foot; M79.672 Pain in left foot; J30.9 Allergic rhinitis, unspecified; F17.210 Nicotine dependence, cigarettes, uncomplicated; Z88.0 Allergy status to penicillin; Z76.5 Malingerer [conscious simulation]
CPT/HCPCS: 80307; G0480; J2426

== ENCOUNTER → 2017-06-27 | Outpatient (CLI) | payer OTHER, MEDICAID | LOC: FIMAGING 12:46 | PROVIDERS: ATTEND Physician Assistant Medical | DX: J34.1 Cyst and mucocele of nose and nasal sinus (principal) ==

== ENCOUNTER → 2017-11-12 | Outpatient (CLI) | payer OTHER, MEDICAID | LOC: BMCIMAGING 11:39 | PROVIDERS: ATTEND Emergency Medicine | DX: R10.84 Generalized abdominal pain (principal) ==

== ENCOUNTER → 2018-08-26 | Outpatient (CLI) | payer OTHER, MEDICAID | LOC: BMCIMAGING 12:15 | PROVIDERS: ATTEND Family Medicine | DX: Z13.828 Encounter for screening for other musculoskeletal disorder (principal) ==

== ENCOUNTER 2018-10-20 10:40 | Inpatient (IN) | payer OTHER, MEDICAID | END 2018-10-27 10:05 | disposition home or self-care (01) | LOC: BBEH 10-21 15:00 ==